=== PATIENT | female | born 1985 | race Caucasian/White ===

== ENCOUNTER 2018-11-09 10:35 | Inpatient (IN) | payer BC ==
[2018-11-09] MEDS ORDERED: Ondansetron 4 MG/2 ML SDV IVPUSH ONE (11:16)
[2018-11-09] MEDS ORDERED: Sodium Chloride 0.9% 10 ML Syringe FLUSH PRN (11:16)
[2018-11-09] MEDS ORDERED: Sodium Chloride 0.9% 1,000 ML IV SCH (11:30)
--- NOTE | 2018-11-09 11:58 | EDM.PDOCBH ---
ED HPI GENERAL MEDICAL PROBLEM - General Chief Complaint: Behavioral/Psych Stated Complaint: SOB Time Seen by Provider: 11/09/18 10:49 Source of Information: Reports: Patient, Family History Limitations: Reports: No Limitations - History of Present Illness INITIAL COMMENTS - FREE TEXT/NARRATIVE: The patient presents with her and daughter for an anxiety attack. She says this started early this morning. She has been dealing with anxiety for years. She has tried xanax and ativan and she does not like how they make her feel. She then turns to alcohol to help with the symptoms. Her alcohol use has been increasing and becoming daily. She can stop for days but she comes right back to it because of the anxiety. She has some shortness of breath with it and chest pain today. She last drank last night. She has no medical problems other then the anxiety. She has lost her mother and father over the past couple of years. This has been a lot to deal with. She has some right ear pain. She has no fever or chills. She does have a slight cough. Onset: Gradual Duration: Week(s): Location: Reports: Chest Quality: Reports: Other (Tightness) Severity: Mild Improves with: Reports: None Worsens with: Reports: None Associated Symptoms: Reports: Chest Pain, Shortness of Breath. 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 , Psychiatric History: Reports: Anxiety - Infectious Disease History Infectious Disease History: Reports: Chicken Pox - Past Surgical History Female Surgical History: Reports: Section Social & Family History - Tobacco Use Smoking Status *Q: Unknown Ever Smoked - Caffeine Use Caffeine Use: Reports: Coffee Other Caffeine Use: 3 cups daily ED ROS GENERAL - Review of Systems Review Of Systems: See Below Constitutional: Reports: No Symptoms HEENT: Reports: Ear Pain Respiratory: Reports: Shortness of Breath Cardiovascular: Reports: Chest Pain Endocrine: Reports: No Symptoms GI/Abdominal: Reports: No Symptoms : Reports: No Symptoms Musculoskeletal: Reports: No Symptoms Skin: Reports: No Symptoms ED EXAM, BEHAVIORAL HEALTH - Physical Exam Exam: See Below Exam Limited By: No Limitations General Appearance: Alert, No Apparent Distress Ears: Normal External Exam Nose: Normal Inspection Head: Atraumatic, Normocephalic Neck: Normal Inspection Respiratory/Chest: No Respiratory Distress, Lungs Clear, Normal Breath Sounds Cardiovascular: Regular Rate, Rhythm, No Edema, No Murmur GI/Abdominal: Soft, Non-Tender, No Organomegaly, No Mass Back Exam: Normal Inspection Extremities: Normal Inspection Neurological: Alert, No Motor/Sensory Deficits, Oriented x 3 COURSE, BEHAVIORAL HEALTH COMP - Course Vital Signs: Last Vital Signs Temp 98.5 F 11/09/18 10:52 Pulse 88 11/09/18 10:52 Resp 16 11/09/18 10:52 BP 115/85 11/09/18 10:52 Pulse Ox 100 11/09/18 10:52 Orders, Labs, Meds: Active Orders 24 hr Category Date Time Status Cardiac Monitoring [RC] . DIRECTED Care 11/09/18 11:17 Active EKG Documentation Completion [RC] ASDIRECTED Care 11/09/18 11:58 Active Peripheral IV Care [RC] . DIRECTED Care 11/09/18 11:18 Active DRUG SCREEN, URINE [URCHEM] Stat Lab 11/09/18 11:16 Ordered Sodium Chloride 0.9% [Normal Saline] 1,000 ml Med 11/09/18 11:30 Active IV .BOLUS Sodium Chloride 0.9% [Saline Flush] Med 11/09/18 11:16 Active 10 ml FLUSH ASDIRECTED PRN ED Antiemetic Medication Reflex [OM.PC] Stat Oth 11/09/18 11:17 Ordered Peripheral IV Insertion Adult [OM.PC] Stat Oth 11/09/18 11:16 Ordered EKG 12 Lead [EK] Stat Ther 11/09/18 11:57 Ordered Medication Orders Sodium Chloride (Normal Saline) 1,000 mls @ 1,000 mls/hr IV .BOLUS LILIA Last Admin: 11/09/18 11:37 Dose: 1,000 mls/hr Sodium Chloride (Saline Flush) 10 ml FLUSH ASDIRECTED PRN PRN Reason: Keep Vein Open Last Admin: 11/09/18 11:37 Dose: 10 ml Laboratory Tests 11/09/18 11/09/18 11/09/18 Range/Units 11:35 11:35 11:35 WBC 7.38 (3.98-10.04) K/mm3 RBC 4.86 (3.98-5.22) M/mm3 Hgb 11.4 (11.2-15.7) gm/L Hct 36.4 (34.1-44.9) % MCV 74.9 L (79.4-94.8) fl MCH 23.5 L (25.6-32.2) pg MCHC 31.3 L (32.2-35.5) g/dl RDW Std Deviation 56.4 H (36.4-46.3) fL Plt Count 403 H (182-369) K/mm3 MPV 9.3 L (9.4-12.3) fl Neut % (Auto) 77.4 H (34.0-71.1) % Lymph % (Auto) 13.4 L (19.3-51.7) % [place] % (Auto) 8.8 (4.7-12.5) % Eos % (Auto) 0 L (0.7-5.8) Baso % (Auto) 0.3 (0.1-1.2) % Neut # (Auto) 5.71 (1.56-6.13) K/mm3 Lymph # (Auto) 0.99 L (1.18-3.74) K/mm3 [place] # (Auto) 0.65 H (0.24-0.36) K/mm3 Eos # (Auto) 0.00 L (0.04-0.36) K/mm3 Baso # (Auto) 0.02 (0.01-0.08) K/mm3 Manual Slide Review Abnormal smear Sodium 139 (136-145) mEq/L Potassium 3.5 (3.5-5.1) mEq/L Chloride 100 (98-107) mEq/L Carbon Dioxide 27 (21-32) mEq/L Anion Gap 15.5 H (5-15) BUN 10 (7-18) mg/dL Creatinine 0.8 (0.55-1.02) mg/dL Est Cr Clr Drug Dosing TNP Estimated GFR (MDRD) > 60 (>60) mL/min BUN/Creatinine Ratio 12.5 L (14-18) Glucose 112 H (74-106) mg/dL Calcium 8.9 (8.5-10.1) mg/dL Total Bilirubin 0.7 (0.2-1.0) mg/dL AST 43 H (15-37) U/L ALT 47 (14-59) U/L Alkaline Phosphatase 95 (46-116) U/L Troponin I (0.00-0.056) ng/mL Total Protein 7.8 (6.4-8.2) g/dl Albumin 4.0 (3.4-5.0) g/dl Globulin 3.8 gm/dL Albumin/Globulin Ratio 1.1 (1-2) HCG, Qual Negative (NEGATIVE) Ethyl Alcohol 0.01 (0.00) gm% 11/09/18 Range/Units 11:35 WBC (3.98-10.04) K/mm3 RBC (3.98-5.22) M/mm3 Hgb (11.2-15.7) gm/L Hct (34.1-44.9) % MCV (79.4-94.8) fl MCH (25.6-32.2) pg MCHC (32.2-35.5) g/dl RDW Std Deviation (36.4-46.3) fL Plt Count (182-369) K/mm3 MPV (9.4-12.3) fl Neut % (Auto) (34.0-71.1) % Lymph % (Auto) (19.3-51.7) % [place] % (Auto) (4.7-12.5) % Eos % (Auto) (0.7-5.8) Baso % (Auto) (0.1-1.2) % Neut # (Auto) (1.56-6.13) K/mm3 Lymph # (Auto) (1.18-3.74) K/mm3 [place] # (Auto) (0.24-0.36) K/mm3 Eos # (Auto) (0.04-0.36) K/mm3 Baso # (Auto) (0.01-0.08) K/mm3 Manual Slide Review Sodium (136-145) mEq/L Potassium (3.5-5.1) mEq/L Chloride (98-107) mEq/L Carbon Dioxide (21-32) mEq/L Anion Gap (5-15) BUN (7-18) mg/dL Creatinine (0.55-1.02) mg/dL Est Cr Clr Drug Dosing Estimated GFR (MDRD) (>60) mL/min BUN/Creatinine Ratio (14-18) Glucose (74-106) mg/dL Calcium (8.5-10.1) mg/dL Total Bilirubin (0.2-1.0) mg/dL AST (15-37) U/L ALT (14-59) U/L Alkaline Phosphatase (46-116) U/L Troponin I < 0.017 (0.00-0.056) ng/mL Total Protein (6.4-8.2) g/dl Albumin (3.4-5.0) g/dl Globulin gm/dL Albumin/Globulin Ratio (1-2) HCG, Qual (NEGATIVE) Ethyl Alcohol (0.00) gm% Medications Generic Name Dose Route Start Last Admin Trade Name Freq PRN Reason Stop Dose Admin Sodium Chloride 1,000 mls @ 1,000 mls/hr 11/09/18 11:30 11/09/18 11:37 Normal Saline IV 1,000 mls/hr .BOLUS LILIA Administration Sodium Chloride 10 ml 11/09/18 11:16 11/09/18 11:37 Saline Flush FLUSH 10 ml ASDIRECTED PRN Administration Keep Vein Open Discontinued Medications Generic Name Dose Route Start Last Admin Trade Name Freq PRN Reason Stop Dose Admin Ondansetron HCl 4 mg 11/09/18 11:16 11/09/18 11:38 Zofran IVPUSH 11/09/18 11:17 4 mg ONETIME ONE Administration Re-Assessment/Re-Exam: I ordered an IV NS 1L bolus, zofran 4g IV, labs, and EKG. Her EKG shows a NSR with no acute changes. Her CBC looks good. Her anion gap was a little elevated at 15.5. Her troponin was negative. Her HCG is negative. Her blood alcohol is 0.01. She was unable to give us a urine sample yet. I feel she needs to be admitted. I called Dr Spring and he agreed. Departure - Departure Time of Disposition: 13:45 Disposition: Admitted As Inpatient 64 Condition: Poor Clinical Impression: Anxiety, Alcohol abuse Alcohol dependence Qualifiers: Substance use status: unspecified alcohol-induced disorder Qualified Code(s): F10.29 - Alcohol dependence with unspecified alcohol-induced disorder Alcohol withdrawal Qualifiers: Complication of substance-induced condition: uncomplicated Qualified Code(s): F10.230 - Alcohol dependence with withdrawal, uncomplicated - Discharge Information Referrals: Yazmin Hendrix [employer] REPAIRER [Primary Care Provider] - Forms: ED Department Discharge - My Orders Last 24 Hours: My Active Orders 11/09/18 11:16 DRUG SCREEN, URINE [URCHEM] Stat Sodium Chloride 0.9% [Saline Flush] 10 ml FLUSH ASDIRECTED PRN Peripheral IV Insertion Adult [OM.PC] Stat 11/09/18 11:17 Cardiac Monitoring [RC] . DIRECTED ED Antiemetic Medication Reflex [OM.PC] Stat 11/09/18 11:18 Peripheral IV Care [RC] . DIRECTED 11/09/18 11:30 Sodium Chloride 0.9% [Normal Saline] 1,000 ml IV .BOLUS 11/09/18 11:57 EKG 12 Lead [EK] Stat 11/09/18 11:58 EKG Documentation Completion [RC] ASDIRECTED - Assessment/Plan Last 24 Hours: My Active Orders 11/09/18 11:16 DRUG SCREEN, URINE [URCHEM] Stat Sodium Chloride 0.9% [Saline Flush] 10 ml FLUSH ASDIRECTED PRN Peripheral IV Insertion Adult [OM.PC] Stat 11/09/18 11:17 Cardiac Monitoring [RC] . DIRECTED ED Antiemetic Medication Reflex [OM.PC] Stat 11/09/18 11:18 Peripheral IV Care [RC] . DIRECTED 11/09/18 11:30 Sodium Chloride 0.9% [Normal Saline] 1,000 ml IV .BOLUS 11/09/18 11:57 EKG 12 Lead [EK] Stat 11/09/18 11:58 EKG Documentation Completion [RC] ASDIRECTED
--- NOTE | 2018-11-09 15:17 | PCM.HP ---
H&P History of Present Illness - General Date of Service: 11/09/18 Admit Problem/Dx: Admission Diagnosis/Problem Admission Diagnosis/Problem Alcohol abuse Source of Information: Patient, Old Records, Provider, RN Notes Reviewed History Limitations: Reports: No Limitations - History of Present Illness Initial Comments - Free Text/Narative: This is a 32 yo white female with no significant past medical hx except for uncontrolled Anxiety, Depression and Panic Attack who comes in for worsening symptoms that started early this morning. She states she has been dealing with anxiety since she was 12 years old. She has been treated with xanax as well as ativan but she does not like how it make her feel like. So she turns to ETOH to control her symptoms. She states she drinks on and off. She can drink 7 days straight and quit for sometime. She usually drinks wine. Her last intake was last night. According to her, she hit rock bottom this past summer and when she gets anxiety attack, she gets stuck at home and not able to leave her house. She also would not answer phone calls. When she gets acute panic attack, her hands will contract, get stiff and then developed bad cramps. She would then hyperventilate followed by crying spell and finally throws up. 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 She also states that she has done well in the past but slowly spiraled down after she lost her mother to cancer a few years ago and her dad this past April due to respiratory failure (Emphysema/COPD). Patient is with 5 children but she has no family support here in town. She is originally from [place] but moved to [place] when her parents retired. She now lives here in [place] with her who usually travels out of town for work. She sees Yazmin Torres as her PCP at the clinic. She has seen her at least twice since she hit [employer] but was never referred to a specialist for further evaluation. She has been on xanax and ativan but when she is on it she "flat line and turns into a zombie like" w/o emotions. She denies being suicidal or homocidal. Currently, she is on Escitalopram for maintenance medication. At first it was working okay but now felt it has stopped working. She denies any other issues other than what she mentioned above. Her initial work up in ED shows a CBC remarkable for MCV of 74.9, MCH of 23.5, MCHC of 31.3 , RDW of 56.4, Platelet # of 403, MPV of 9.3, Neutrophils of 77.4% and Lymphocyte of 13.4%. Her chemistry is significant for AG of 15.5, BS of 112, AST of 43. Her screening is negative. Her UDS in negative. Her JAYASHREE level is 0.01. Patient is being admitted for medical management of severe anxiety with panic attack and acute ETOH abuse and wants some help to get better. 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 , Psychiatric History: Reports: Anxiety - Infectious Disease History Infectious Disease History: Reports: Chicken Pox - Past Surgical History Female Surgical History: Reports: Section Social & Family History - Tobacco Use Smoking Status *Q: Current Every Day Smoker Years of Tobacco use: 1 Packs/Tins Daily: 1 - Caffeine Use Caffeine Use: Reports: Coffee Other Caffeine Use: 3 cups daily - Recreational Drug Use Recreational Drug Use: No H&P Review of Systems - Review of Systems: Review Of Systems: See Below General: Denies: Fever, Chills, Malaise, Weakness, Fatigue HEENT: Reports: No Symptoms Pulmonary: Reports: Shortness of Breath. Denies: Wheezing, Pleuritic Chest Pain , Other Cardiovascular: Reports: Chest Pain, Palpitations. Denies: Dyspnea on Exertion , Lightheadedness, Syncope, Claudication, Blood Pressure Problem Gastrointestinal: Reports: Nausea. Denies: Abdominal Pain, Decreased Appetite, Vomiting Genitourinary: Reports: No Symptoms Musculoskeletal: Reports: Muscle Stiffness. Denies: Neck Pain, Arm Pain, Joint Swelling Skin: Denies: Cyanosis, Jaundice, Pallor, Diaphoresis, Bruising, Rash, Erythema , Wound Psychiatric: Reports: Mood Lability, Anxiety. Denies: Agitation, Cravings, Hallucinations, Suicidal Ideation, Homicidal Ideation Neurological: Denies: Confusion, Seizure, Difficulty Walking, Weakness, Gait Disturbance Hematologic/Lymphatic: Reports: No Symptoms Immunologic: Reports: No Symptoms Exam - Exam Exam: See Below - Vital Signs Vital Signs: Last Vital Signs Temp 36.9 C 11/09/18 10:52 Pulse 88 11/09/18 10:52 Resp 16 11/09/18 10:52 BP 115/85 11/09/18 10:52 Pulse Ox 100 11/09/18 10:52 Weight: 60.419 kg - Exam General: Alert, Oriented, Cooperative HEENT: Conjunctiva Clear, EACs Clear, EOMI, Hearing Intact, Mucosa Moist & Cove , Nares Patent, Normal Nasal Septum, Posterior Pharynx Clear, Pupils Equal, Pupils Reactive Neck: Supple, Trachea Midline Lungs: Clear to Auscultation, Normal Respiratory Effort Cardiovascular: Regular Rate, Regular Rhythm GI/Abdominal Exam: Normal Bowel Sounds, Soft, Non-Tender, No Organomegaly, No Distention, No Abnormal Bruit (Female) Exam: Deferred Rectal (Female) Exam: Deferred Back Exam: Normal Inspection, Full Range of Motion Extremities: Normal Inspection, Normal Range of Motion, Non-Tender, No Pedal Edema, Normal Capillary Refill Peripheral Pulses: 3+: Posterior Tibial (L), Posterior Tibial (R), Dorsalis Pedis (L), Dorsalis Pedis (R) Skin: Warm, Dry, Intact Neuro Extensive - Mental Status: Oriented x3, Normal Cognition, Memory Intact Neuro Extensive - Motor, Sensory, Reflexes: CN II-XII Intact, Normal Gait Psychiatric: Alert, Normal Affect, Normal Mood. No: Anxious, Depressed, Agitated, Homicidal Ideation, Hallucinations, Withdrawal Symptoms - Patient Data Lab Results Last 24 hrs: Laboratory Results - last 24 hr 11/09/18 11/09/18 11/09/18 Range/Units 11:35 11:35 11:35 WBC 7.38 (3.98-10.04) K/mm3 RBC 4.86 (3.98-5.22) M/mm3 Hgb 11.4 (11.2-15.7) gm/L Hct 36.4 (34.1-44.9) % MCV 74.9 L (79.4-94.8) fl MCH 23.5 L (25.6-32.2) pg MCHC 31.3 L (32.2-35.5) g/dl RDW Std Deviation 56.4 H (36.4-46.3) fL Plt Count 403 H (182-369) K/mm3 MPV 9.3 L (9.4-12.3) fl Neut % (Auto) 77.4 H (34.0-71.1) % Lymph % (Auto) 13.4 L (19.3-51.7) % [place] % (Auto) 8.8 (4.7-12.5) % Eos % (Auto) 0 L (0.7-5.8) Baso % (Auto) 0.3 (0.1-1.2) % Neut # (Auto) 5.71 (1.56-6.13) K/mm3 Lymph # (Auto) 0.99 L (1.18-3.74) K/mm3 [place] # (Auto) 0.65 H (0.24-0.36) K/mm3 Eos # (Auto) 0.00 L (0.04-0.36) K/mm3 Baso # (Auto) 0.02 (0.01-0.08) K/mm3 Manual Slide Review Abnormal smear Sodium 139 (136-145) mEq/L Potassium 3.5 (3.5-5.1) mEq/L Chloride 100 (98-107) mEq/L Carbon Dioxide 27 (21-32) mEq/L Anion Gap 15.5 H (5-15) BUN 10 (7-18) mg/dL Creatinine 0.8 (0.55-1.02) mg/dL Est Cr Clr Drug Dosing TNP Estimated GFR (MDRD) > 60 (>60) mL/min BUN/Creatinine Ratio 12.5 L (14-18) Glucose 112 H (74-106) mg/dL Calcium 8.9 (8.5-10.1) mg/dL Total Bilirubin 0.7 (0.2-1.0) mg/dL AST 43 H (15-37) U/L ALT 47 (14-59) U/L Alkaline Phosphatase 95 (46-116) U/L Troponin I (0.00-0.056) ng/mL Total Protein 7.8 (6.4-8.2) g/dl Albumin 4.0 (3.4-5.0) g/dl Globulin 3.8 gm/dL Albumin/Globulin Ratio 1.1 (1-2) HCG, Qual Negative (NEGATIVE) Ethyl Alcohol 0.01 (0.00) gm% 11/09/18 Range/Units 11:35 WBC (3.98-10.04) K/mm3 RBC (3.98-5.22) M/mm3 Hgb (11.2-15.7) gm/L Hct (34.1-44.9) % MCV (79.4-94.8) fl MCH (25.6-32.2) pg MCHC (32.2-35.5) g/dl RDW Std Deviation (36.4-46.3) fL Plt Count (182-369) K/mm3 MPV (9.4-12.3) fl Neut % (Auto) (34.0-71.1) % Lymph % (Auto) (19.3-51.7) % [place] % (Auto) (4.7-12.5) % Eos % (Auto) (0.7-5.8) Baso % (Auto) (0.1-1.2) % Neut # (Auto) (1.56-6.13) K/mm3 Lymph # (Auto) (1.18-3.74) K/mm3 [place] # (Auto) (0.24-0.36) K/mm3 Eos # (Auto) (0.04-0.36) K/mm3 Baso # (Auto) (0.01-0.08) K/mm3 Manual Slide Review Sodium (136-145) mEq/L Potassium (3.5-5.1) mEq/L Chloride (98-107) mEq/L Carbon Dioxide (21-32) mEq/L Anion Gap (5-15) BUN (7-18) mg/dL Creatinine (0.55-1.02) mg/dL Est Cr Clr Drug Dosing Estimated GFR (MDRD) (>60) mL/min BUN/Creatinine Ratio (14-18) Glucose (74-106) mg/dL Calcium (8.5-10.1) mg/dL Total Bilirubin (0.2-1.0) mg/dL AST (15-37) U/L ALT (14-59) U/L Alkaline Phosphatase (46-116) U/L Troponin I < 0.017 (0.00-0.056) ng/mL Total Protein (6.4-8.2) g/dl Albumin (3.4-5.0) g/dl Globulin gm/dL Albumin/Globulin Ratio (1-2) HCG, Qual (NEGATIVE) Ethyl Alcohol (0.00) gm% Result Diagrams: 11/10/18 05:45 11/10/18 05:45 Problem List Initiated/Reviewed/Updated: Yes Orders Last 24hrs: Active Orders 24 hr Category Date Time Status Admission Status [Patient Status] [ADT] Routine ADT 11/09/18 13:59 Active Cardiac Monitoring [RC] . DIRECTED Care 11/09/18 11:17 Active EKG Documentation Completion [RC] ASDIRECTED Care 11/09/18 11:58 Active Peripheral IV Care [RC] . DIRECTED Care 11/09/18 11:18 Active DRUG SCREEN, URINE [URCHEM] Stat Lab 11/09/18 15:08 Ordered Sodium Chloride 0.9% [Normal Saline] 1,000 ml Med 11/09/18 11:30 Active IV .BOLUS Sodium Chloride 0.9% [Saline Flush] Med 11/09/18 11:16 Active 10 ml FLUSH ASDIRECTED PRN ED Antiemetic Medication Reflex [OM.PC] Stat Oth 11/09/18 11:17 Ordered Peripheral IV Insertion Adult [OM.PC] Stat Oth 11/09/18 11:16 Ordered EKG 12 Lead [EK] Stat Ther 11/09/18 11:57 Ordered Medication Orders Sodium Chloride (Normal Saline) 1,000 mls @ 1,000 mls/hr IV .BOLUS LILIA Last Admin: 11/09/18 11:37 Dose: 1,000 mls/hr Sodium Chloride (Saline Flush) 10 ml FLUSH ASDIRECTED PRN PRN Reason: Keep Vein Open Last Admin: 11/09/18 11:37 Dose: 10 ml Assessment/Plan Comment:: Assessment/Plan: Acute: ETOH Abuse - CIWA protocol: CIWA score is low - Ativan/Clonidine/Haldol - Hydralazine and IVP BB for HR/BP control - Ativan for Abortive Seizure and Withdrawal Symptoms Severe Anxiety with Panic Attack - Uncontrolled - Hit rock bottom this past summer - Has had multiple stressors and worsened by recent of her father this past April - She has tried Xanax but it does not make her feel good; she is now Escitalopram but she states no onger works for her - She has been drinking ETOH to control her anxiety Chronic: Anxiety with Panic Attack Depression Plan: Admit to ICU MVI, Folic Acid and Thiamine CIWA protocol Ativan for Abortive Seizure and Withdrawal Symptoms PRN meds for Withdrawal Symptoms Aspiration/Seizure Precautions SW/CM d/c planning SA/Psych consult Code Status: 1
[2018-11-09] MEDS ORDERED: Bisacodyl 5 MG Tab PO PRN (15:20)
[2018-11-09] MEDS ORDERED: Acetaminophen 325 MG Tab PO PRN (15:20)
[2018-11-09] MEDS ORDERED: Nicotine 21 MG/24 Hr Patch TRDERM PRN (15:20)
[2018-11-09] MEDS ORDERED: Ondansetron 4 MG/2 ML SDV IV PRN (15:20)
[2018-11-09] MEDS ORDERED: hydrALAZINE 20 MG/ML SDV IVPUSH PRN (15:20)
[2018-11-09] MEDS ORDERED: Metoprolol Tartrate 5 MG/5 ML SDV IVPUSH PRN (15:20)
[2018-11-09] MEDS ORDERED: Docusate Sodium 100 MG Cap PO PRN (15:20)
[2018-11-09] MEDS ORDERED: Albuterol/Ipratropium 3.0-0.5 MG/3 ML Neb Soln NEB PRN (15:20)
[2018-11-09] MEDS ORDERED: Promethazine 6.25 MG in Sodium Chloride 0.9% 50 ML IV PRN (15:20)
[2018-11-09] MEDS ORDERED: HYDROmorphone 1 MG/ML Syringe IVPUSH PRN (15:20)
[2018-11-09] MEDS ORDERED: Polyethylene Glycol 3350 Powder 17 GM Packet PO PRN (15:20)
[2018-11-09] MEDS ORDERED: Acetaminophen/HYDROcodone 325-5 MG Tab PO PRN (15:20)
[2018-11-09] MEDS ORDERED: LORazepam 2 MG/ML SDV IVPUSH PRN ×2 (15:20→15:27)
[2018-11-09] MEDS ORDERED: Multivitamins,Therapeutic Tab PO ONE (15:25)
[2018-11-09] MEDS ORDERED: cloNIDine 0.1 MG Tab PO PRN (15:25)
[2018-11-09] MEDS ORDERED: Thiamine 100 MG in Sodium Chloride 0.9% 50 ML IV ONE (15:25)
[2018-11-09] MEDS ORDERED: Haloperidol Lactate 5 MG/ML SDV IM PRN (15:25)
[2018-11-09] MEDS ORDERED: Thiamine 100 MG Tab PO ONE (16:46)
[2018-11-09] MEDS: Famotidine 20 MG Tab PO SCH (16:54)
[2018-11-09] MEDS ORDERED: Topiramate 25 MG Tab PO SCH (21:00)
[2018-11-09] MEDS ORDERED: QUEtiapine 25 MG Tab PO SCH (21:00)
[2018-11-10] MEDS: Famotidine 20 MG Tab PO SCH ×2 (04:26→14:34)
[2018-11-10 08:37] VITALS: BP 128/84
[2018-11-10] MEDS ORDERED: Folic Acid 1 MG Tab PO SCH (09:00)
[2018-11-10] MEDS ORDERED: Topiramate 25 MG Tab PO SCH (09:00)
--- NOTE | 2018-11-10 09:12 | PCM.PN ---
- General Info Date of Service: 11/10/18 Admission Dx/Problem (Free Text): Admission Diagnosis/Problem Admission Diagnosis/Problem Alcohol abuse Functional Status: Reports: Pain Controlled, Tolerating Diet, Ambulating, Urinating. Denies: New Symptoms - Patient Data Vitals - Most Recent: Last Vital Signs Temp 36.6 C 11/10/18 08:00 Pulse 72 11/10/18 08:00 Resp 18 11/10/18 08:00 BP 128/84 11/10/18 08:00 Pulse Ox 97 11/10/18 08:00 Weight - Most Recent: 60.872 kg I&O - Last 24 Hours: Intake & Output 11/09/18 11/10/18 11/10/18 22:59 06:59 14:59 Intake Total 580 500 Output Total 500 Balance 80 500 Lab Results Last 24 Hours: Laboratory Results - last 24 hr 11/09/18 11/09/18 11/09/18 Range/Units 11:35 11:35 11:35 WBC 7.38 (3.98-10.04) K/mm3 RBC 4.86 (3.98-5.22) M/mm3 Hgb 11.4 (11.2-15.7) gm/L Hct 36.4 (34.1-44.9) % MCV 74.9 L (79.4-94.8) fl MCH 23.5 L (25.6-32.2) pg MCHC 31.3 L (32.2-35.5) g/dl RDW Std Deviation 56.4 H (36.4-46.3) fL Plt Count 403 H (182-369) K/mm3 MPV 9.3 L (9.4-12.3) fl Neut % (Auto) 77.4 H (34.0-71.1) % Lymph % (Auto) 13.4 L (19.3-51.7) % Bowman % (Auto) 8.8 (4.7-12.5) % Eos % (Auto) 0 L (0.7-5.8) Baso % (Auto) 0.3 (0.1-1.2) % Neut # (Auto) 5.71 (1.56-6.13) K/mm3 Lymph # (Auto) 0.99 L (1.18-3.74) K/mm3 Bowman # (Auto) 0.65 H (0.24-0.36) K/mm3 Eos # (Auto) 0.00 L (0.04-0.36) K/mm3 Baso # (Auto) 0.02 (0.01-0.08) K/mm3 Manual Slide Review Abnormal smear Sodium 139 (136-145) mEq/L Potassium 3.5 (3.5-5.1) mEq/L Chloride 100 (98-107) mEq/L Carbon Dioxide 27 (21-32) mEq/L Anion Gap 15.5 H (5-15) BUN 10 (7-18) mg/dL Creatinine 0.8 (0.55-1.02) mg/dL Est Cr Clr Drug Dosing TNP Estimated GFR (MDRD) > 60 (>60) mL/min BUN/Creatinine Ratio 12.5 L (14-18) Glucose 112 H (74-106) mg/dL Calcium 8.9 (8.5-10.1) mg/dL Magnesium (1.8-2.4) mg/dl Total Bilirubin 0.7 (0.2-1.0) mg/dL AST 43 H (15-37) U/L ALT 47 (14-59) U/L Alkaline Phosphatase 95 (46-116) U/L Troponin I (0.00-0.056) ng/mL Total Protein 7.8 (6.4-8.2) g/dl Albumin 4.0 (3.4-5.0) g/dl Globulin 3.8 gm/dL Albumin/Globulin Ratio 1.1 (1-2) Free T4 (0.76-1.46) ng/dL TSH 3rd Generation (0.358-3.74) uIU/mL HCG, Qual Negative (NEGATIVE) Urine Opiates Screen (GESYXI=012) Ur Buprenorphine Scrn (CUTOFF=10) Ur Oxycodone Screen (PFG7IO=225) Urine Methadone Screen (QULNDJ=677) Ur Propoxyphene Screen (HQLPGJ=523) Ur Barbiturates Screen (XMPSYN=010) Ur Tricyclics Screen (BBXMLA=675) Ur Phencyclidine Scrn (CUTOFF=25) Ur Amphetamine Screen (YGDBSG=208) U Methamphetamines Scrn (MPNRXU=710) U Benzodiazepines Scrn (VMYWHH=144) U Cocaine Metab Screen (RYUJIV=497) U Marijuana (THC) Screen (CUTOFF=50) Ethyl Alcohol 0.01 (0.00) gm% 11/09/18 11/09/18 11/10/18 Range/Units 11:35 14:40 05:45 WBC 4.88 (3.98-10.04) K/mm3 RBC 4.52 (3.98-5.22) M/mm3 Hgb 10.8 L (11.2-15.7) gm/L Hct 34.3 (34.1-44.9) % MCV 75.9 L (79.4-94.8) fl MCH 23.9 L (25.6-32.2) pg MCHC 31.5 L (32.2-35.5) g/dl RDW Std Deviation 56.8 H (36.4-46.3) fL Plt Count 342 (182-369) K/mm3 MPV 10.3 (9.4-12.3) fl Neut % (Auto) 56.6 (34.0-71.1) % Lymph % (Auto) 28.7 (19.3-51.7) % Bowman % (Auto) 13.1 H (4.7-12.5) % Eos % (Auto) 1.4 (0.7-5.8) Baso % (Auto) 0.2 (0.1-1.2) % Neut # (Auto) 2.76 (1.56-6.13) K/mm3 Lymph # (Auto) 1.40 (1.18-3.74) K/mm3 Bowman # (Auto) 0.64 H (0.24-0.36) K/mm3 Eos # (Auto) 0.07 (0.04-0.36) K/mm3 Baso # (Auto) 0.01 (0.01-0.08) K/mm3 Manual Slide Review Sodium (136-145) mEq/L Potassium (3.5-5.1) mEq/L Chloride (98-107) mEq/L Carbon Dioxide (21-32) mEq/L Anion Gap (5-15) BUN (7-18) mg/dL Creatinine (0.55-1.02) mg/dL Est Cr Clr Drug Dosing Estimated GFR (MDRD) (>60) mL/min BUN/Creatinine Ratio (14-18) Glucose (74-106) mg/dL Calcium (8.5-10.1) mg/dL Magnesium (1.8-2.4) mg/dl Total Bilirubin (0.2-1.0) mg/dL AST (15-37) U/L ALT (14-59) U/L Alkaline Phosphatase (46-116) U/L Troponin I < 0.017 (0.00-0.056) ng/mL Total Protein (6.4-8.2) g/dl Albumin (3.4-5.0) g/dl Globulin gm/dL Albumin/Globulin Ratio (1-2) Free T4 (0.76-1.46) ng/dL TSH 3rd Generation (0.358-3.74) uIU/mL HCG, Qual (NEGATIVE) Urine Opiates Screen Negative (AEQNOT=951) Ur Buprenorphine Scrn Negative (CUTOFF=10) Ur Oxycodone Screen Negative (XUJ4VL=693) Urine Methadone Screen Negative (IJZLES=773) Ur Propoxyphene Screen Negative (YSDRTS=882) Ur Barbiturates Screen Negative (KCGIGR=247) Ur Tricyclics Screen Negative (ZDUJXC=910) Ur Phencyclidine Scrn Negative (CUTOFF=25) Ur Amphetamine Screen Negative (IBKEWX=747) U Methamphetamines Scrn Negative (KAPRJP=255) U Benzodiazepines Scrn Negative (NLCRLE=447) U Cocaine Metab Screen Negative (YRCXSD=950) U Marijuana (THC) Screen Negative (CUTOFF=50) Ethyl Alcohol (0.00) gm% 11/10/18 Range/Units 05:45 WBC (3.98-10.04) K/mm3 RBC (3.98-5.22) M/mm3 Hgb (11.2-15.7) gm/L Hct (34.1-44.9) % MCV (79.4-94.8) fl MCH (25.6-32.2) pg MCHC (32.2-35.5) g/dl RDW Std Deviation (36.4-46.3) fL Plt Count (182-369) K/mm3 MPV (9.4-12.3) fl Neut % (Auto) (34.0-71.1) % Lymph % (Auto) (19.3-51.7) % Bowman % (Auto) (4.7-12.5) % Eos % (Auto) (0.7-5.8) Baso % (Auto) (0.1-1.2) % Neut # (Auto) (1.56-6.13) K/mm3 Lymph # (Auto) (1.18-3.74) K/mm3 Bowman # (Auto) (0.24-0.36) K/mm3 Eos # (Auto) (0.04-0.36) K/mm3 Baso # (Auto) (0.01-0.08) K/mm3 Manual Slide Review Sodium 136 (136-145) mEq/L Potassium 3.5 (3.5-5.1) mEq/L Chloride 102 (98-107) mEq/L Carbon Dioxide 25 (21-32) mEq/L Anion Gap 12.5 (5-15) BUN 8 (7-18) mg/dL Creatinine 0.7 (0.55-1.02) mg/dL Est Cr Clr Drug Dosing 89.56 Estimated GFR (MDRD) > 60 (>60) mL/min BUN/Creatinine Ratio 11.4 L (14-18) Glucose 107 H (74-106) mg/dL Calcium 8.6 (8.5-10.1) mg/dL Magnesium 2.0 (1.8-2.4) mg/dl Total Bilirubin (0.2-1.0) mg/dL AST (15-37) U/L ALT (14-59) U/L Alkaline Phosphatase (46-116) U/L Troponin I (0.00-0.056) ng/mL Total Protein (6.4-8.2) g/dl Albumin (3.4-5.0) g/dl Globulin gm/dL Albumin/Globulin Ratio (1-2) Free T4 0.90 (0.76-1.46) ng/dL TSH 3rd Generation 1.158 (0.358-3.74) uIU/mL HCG, Qual (NEGATIVE) Urine Opiates Screen (OEDDFH=701) Ur Buprenorphine Scrn (CUTOFF=10) Ur Oxycodone Screen (ITE4MQ=680) Urine Methadone Screen (TZFBIJ=998) Ur Propoxyphene Screen (JJGHMW=524) Ur Barbiturates Screen (FPALZH=075) Ur Tricyclics Screen (HXQSJD=856) Ur Phencyclidine Scrn (CUTOFF=25) Ur Amphetamine Screen (TNIMPT=244) U Methamphetamines Scrn (BWVHQT=561) U Benzodiazepines Scrn (WSDAPA=033) U Cocaine Metab Screen (EZYUDW=533) U Marijuana (THC) Screen (CUTOFF=50) Ethyl Alcohol (0.00) gm% Med Orders - Current: Current Medications Acetaminophen (Tylenol) 650 mg PO Q4H PRN PRN Reason: Pain (Mild 1-3)/fever Hydrocodone Bitart/Acetaminophen ([place] 325-5 Mg) 1 tab PO Q4H PRN PRN Reason: Pain (moderate 4-6) Albuterol/Ipratropium (Duoneb 3.0-0.5 Mg/3 Ml) 3 ml NEB Q4H PRN PRN Reason: Shortness Of Breath/wheezing Bisacodyl (Dulcolax) 5 mg PO DAILY PRN PRN Reason: Constipation Clonidine HCl (Catapres) 0.1 mg PO Q4H PRN PRN Reason: Agitation Docusate Sodium (Colace) 100 mg PO BID PRN PRN Reason: Constipation Famotidine (Pepcid) 20 mg PO Q12H [facility] Last Admin: 11/10/18 04:26 Dose: 20 mg Folic Acid (Folic Acid) 1 mg PO DAILY [facility] Stop: 11/12/18 09:01 Haloperidol Lactate (Haldol) 2 mg IM Q4H PRN PRN Reason: Agitation Hydralazine HCl (Apresoline) 20 mg IVPUSH Q4H PRN PRN Reason: Hypertension Last Admin: 11/09/18 21:13 Dose: 20 mg Hydromorphone HCl (Dilaudid) 0.25 mg IVPUSH Q2H PRN PRN Reason: Pain (severe 7-10) Sodium Chloride (Normal Saline) 1,000 mls @ 1,000 mls/hr IV .BOLUS [facility] Last Admin: 11/09/18 11:37 Dose: 1,000 mls/hr Promethazine HCl 6.25 mg/ (Sodium Chloride) 50.25 mls @ 100 mls/hr IV Q6H PRN PRN Reason: Nausea/Vomiting Lorazepam (Ativan) 2 mg IVPUSH Q4H PRN PRN Reason: Seizures Lorazepam (Ativan) 0 mg IVPUSH Q4H PRN; Protocol PRN Reason: Withdrawal Symptoms Magnesium Sulfate (Pharmacy To Dose - Magnesium Replacement) 1 dose .XX ASDIRECTED [facility] Metoprolol Tartrate (Lopressor) 5 mg IVPUSH Q4H PRN PRN Reason: Tachycardia Miscellaneous Information (Remove Patch) 0 ea TRDERM Q24H [facility] Nicotine (Habitrol) 21 mg TRDERM Q24H PRN PRN Reason: Nicotine Dependence Ondansetron HCl (Zofran) 4 mg IV Q6H PRN PRN Reason: Nausea/Vomiting Norgestrel-Ethinyl (Estradiol 1 Tab) 0 each PO DAILY [facility] Polyethylene Glycol (Miralax) 17 gm PO DAILY PRN PRN Reason: Constipation Potassium Chloride (Pharmacy To Dose - Potassium Replacement) 1 dose .XX ASDIRECTED [facility] Senna/Docusate Sodium (Senna Plus) 1 tab PO BID PRN PRN Reason: Constipation Sodium Chloride (Saline Flush) 10 ml FLUSH ASDIRECTED PRN PRN Reason: Keep Vein Open Last Admin: 11/09/18 11:37 Dose: 10 ml Topiramate (Topamax) 25 mg PO BID [facility] Discontinued Medications Thiamine HCl 100 mg/ Sodium (Chloride) 51 mls @ 100 mls/hr IV ONETIME ONE Stop: 11/09/18 15:55 Last Admin: 11/09/18 16:46 Dose: Not Given Multivitamins (Thera) 1 each PO ONETIME ONE Stop: 11/09/18 15:26 Last Admin: 11/09/18 16:54 Dose: 1 each Ondansetron HCl (Zofran) 4 mg IVPUSH ONETIME ONE Stop: 11/09/18 11:17 Last Admin: 11/09/18 11:38 Dose: 4 mg Quetiapine Fumarate (Seroquel) 50 mg PO BEDTIME [facility] Thiamine HCl (Vitamin B-1) 100 mg PO ONETIME ONE Stop: 11/09/18 16:47 Last Admin: 11/09/18 16:54 Dose: 100 mg Topiramate (Topamax) 25 mg PO BID [facility] - My Orders Last 24 Hours: My Active Orders 11/09/18 15:20 Height and Weight [RC] 04 Oxygen Therapy [RC] PRN Up ad Shakila [RC] ASDIRECTED VTE/DVT Education [RC] BID Vital Signs [RC] Q4HR Consult to Case Management/Lining [place]utter [CONS] Routine Consult to Physician [CONS] Routine Consult to Spiritual Care [CONS] Routine Acetaminophen [Tylenol] 650 mg PO Q4H PRN Acetaminophen/HYDROcodone [[place] 325-5 MG] 1 tab PO Q4H PRN Albuterol/Ipratropium [DuoNeb 3.0-0.5 MG/3 ML] 3 ml NEB Q4H PRN Bisacodyl [Dulcolax] 5 mg PO DAILY PRN Docusate Sodium [Colace] 100 mg PO BID PRN Docusate Sodium/Sennosides [Senna Plus] 1 tab PO BID PRN HYDROmorphone [Dilaudid] 0.25 mg IVPUSH Q2H PRN LORazepam [Ativan] 2 mg IVPUSH Q4H PRN Metoprolol Tartrate [Lopressor] 5 mg IVPUSH Q4H PRN Nicotine [Habitrol] 21 mg TRDERM Q24H PRN Ondansetron [Zofran] 4 mg IV Q6H PRN Polyethylene Glycol 3350 [MiraLAX] 17 gm PO DAILY PRN Promethazine [Phenergan] 6.25 mg Sodium Chloride 0.9% [Normal Saline] 50 ml IV Q6H hydrALAZINE [Apresoline] 20 mg IVPUSH Q4H PRN Resuscitation Status Routine 11/09/18 15:21 Cardiac Monitoring [RC] . DIRECTED Intake and Output [RC] 04,16 Sequential Compression Device [OM.PC] Per Unit Routine 11/09/18 15:22 Antiembolic Devices [RC] BID RT Aerosol Therapy [RC] ASDIRECTED 11/09/18 15:23 Notify Provider Consults [RC] ASDIRECTED 11/09/18 15:25 CIWAA Assessment [RC] Q4HR Notify Provider [RC] PRN Haloperidol Lactate [Haldol] 2 mg IM Q4H PRN cloNIDine [Catapres] 0.1 mg PO Q4H PRN Seizure Precautions [OM.PC] Routine 11/09/18 15:27 LORazepam [Ativan] See Protocol IVPUSH Q4H PRN 11/09/18 15:30 Famotidine [Pepcid] 20 mg PO Q12H Pharmacy to Dose - Magnesium R [Pharmacy to Dose - Magnesium Replacement] 1 dose .XX ASDIRECTED Pharmacy to Dose - Potassium R [Pharmacy to Dose - Potassium Replacement] 1 dose .XX ASDIRECTED 11/09/18 16:14 Consult for Substance Abuse [CONS] Routine 11/09/18 Lunch Regular Diet [DIET] 11/10/18 06:00 Patient Status [ADT] Routine 11/10/18 09:00 Folic Acid 1 mg PO DAILY Patient's Own Medication [Ptom] 0 each PO DAILY 11/10/18 15:30 Remove Patch 0 ea TRDERM Q24H 11/11/18 05:11 BASIC METABOLIC PANEL,BMP [CHEM] AM MAGNESIUM [CHEM] AM 11/12/18 05:11 BASIC METABOLIC PANEL,BMP [CHEM] AM MAGNESIUM [CHEM] AM - Plan Plan:: Assessment/Plan: Acute: ETOH Abuse - CIWA protocol: CIWA score is low - Ativan/Clonidine/Haldol - Hydralazine and IVP BB for HR/BP control - Ativan for Abortive Seizure and Withdrawal Symptoms Severe Anxiety with Panic Attack - Uncontrolled - Hit rock bottom this past summer - Has had multiple stressors and worsened by recent of her father this past April - She has tried Xanax but it does not make her feel good; she is now Escitalopram but she states no [employer] works for her - She has been drinking ETOH to control her anxiety Chronic: Anxiety with Panic Attack Depression Plan: Admit to ICU MVI, Folic Acid and Thiamine CIWA protocol Ativan for Abortive Seizure and Withdrawal Symptoms PRN meds for Withdrawal Symptoms Aspiration/Seizure Precautions SW/CM d/c planning SA/Psych consult Code Status: 1
--- NOTE | 2018-11-10 15:30 | PCM.DCSUM1 ---
Discharge Summary - Hospital Course HPI Initial Comments: This is a 32 yo white female with no significant past medical hx except for uncontrolled Anxiety, Depression and Panic Attack who comes in for worsening symptoms that started early this morning. She states she has been dealing with anxiety since she was 12 years old. She has been treated with xanax as well as ativan but she does not like how it make her feel like. So she turns to ETOH to control her symptoms. She states she drinks on and off. She can drink 7 days straight and quit for sometime. She usually drinks wine. Her last intake was last night. According to her, she hit rock bottom this past summer and when she gets anxiety attack, she gets stuck at home and not able to leave her house. She also would not answer phone calls. When she gets acute panic attack, her hands will contract, get stiff and then developed bad cramps. She would then hyperventilate followed by crying spell and finally throws up. 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 She also states that she has done well in the past but slowly spiraled down after she lost her mother to cancer a few years ago and her dad this past April due to respiratory failure (Emphysema/COPD). Patient is with 5 children but she has no family support here in [facility]. She is originally from [place] but moved to [place] when her parents retired. She now lives here in [place] with her who usually travels out of [facility] for work. She sees Yazmin Torres as her PCP at the clinic. She has seen her at least twice since she hit [employer] but was never referred to a specialist for further evaluation. She has been on xanax and ativan but when she is on it she "flat line and turns into a zombie like" w/o emotions. She denies being suicidal or homocidal. Currently, she is on Escitalopram for maintenance medication. At first it was working okay but now felt it has stopped working. She denies any other issues other than what she mentioned above. Her initial work up in ED shows a CBC remarkable for MCV of 74.9, MCH of 23.5, MCHC of 31.3 , RDW of 56.4, Platelet # of 403, MPV of 9.3, Neutrophils of 77.4% and Lymphocyte of 13.4%. Her chemistry is significant for AG of 15.5, BS of 112, AST of 43. Her screening is negative. Her UDS in negative. Her JAYASHREE level is 0.01. Patient is being admitted for medical management of severe anxiety with panic attack and acute ETOH abuse and wants some help to get better. Diagnosis: Stroke: No Modified Jessamine Scale: No Symptoms at All Modified Jadyn Scale Score: 0 - Discharge Data Discharge Date: 11/10/18 Discharge Disposition: Home, Self-Care 01 Condition: Good - Discharge Diagnosis/Problem(s) (1) Panic attack due to exceptional stress SNOMED Code(s): 36842517 ICD Code: F41.0 - PANIC DISORDER [EPISODIC PAROXYSMAL ANXIETY]; F43.0 - ACUTE STRESS REACTION Status: Acute (2) Alcohol abuse SNOMED Code(s): 80471796 ICD Code: F10.10 - ALCOHOL ABUSE, UNCOMPLICATED Status: Resolved (3) Anxiety SNOMED Code(s): 92152911 ICD Code: F41.9 - ANXIETY DISORDER, UNSPECIFIED Status: Chronic - Patient Summary/Data Operative Procedure(s) Performed: None Complications: None Consults: Consultations 11/09/18 15:20 Consult to Case Management/Hansard Reporter [CONS] Routine Consult to Physician [CONS] Routine Consult to Spiritual Care [CONS] Routine 11/09/18 16:14 Consult for Substance Abuse [CONS] Routine Labs Pending at D/C: None Recommended Follow-up Testing/Procedures: None Planned Operative Procedure(s) after DC: None - Patient Instructions Diet: Usual Diet as Tolerated Activity: As Tolerated Driving: Do Not Drive Showering/Bathing: May Shower Notify Provider of: Fever, Increased Pain, Nausea and/or Vomiting Other/Special Instructions: - Please take all new medications as directed. - Resume all home medications and routine home activities as tolerated. - Recommend keeping your apointmwnt with Dr. Levy in 4-6 weeks. - Call or follow up with your PCP for any questions or concerns after discharge. - Follow up with your PCP in 1 week was needed. - If you experience mental health crisis, call 911 or come to emergency department and seek medical care. - Come back or seek immediate care should your symptoms persist or get worse - Discharge Plan *PRESCRIPTION DRUG MONITORING PROGRAM REVIEWED*: Not Applicable *COPY OF PRESCRIPTION DRUG MONITORING REPORT IN PATIENT OFELIA: Not Applicable Prescriptions/Med Rec: ClomiPRAMINE [ClomiPRAMINE HCl] 25 mg PO DAILY #90 cap Topiramate [Topamax] 25 mg PO BID #60 tab Home Medications: Home Meds Norgestrel-Ethinyl Estradiol [Elinest-28 Tablet] 1 tab PO DAILY 11/09/18 [ History] ClomiPRAMINE [ClomiPRAMINE HCl] 25 mg PO DAILY #90 cap 11/10/18 [Rx] Topiramate [Topamax] 25 mg PO BID #60 tab 11/10/18 [Rx] Patient Handouts: Alcohol Use Disorder, Panic Attack, [id number], Alcohol Abuse and Nutrition, Steps to Quit Smoking Referrals: Norman Levy MD [Physician] - (Please call office in 4 weeks to set up an appointment for 5-6 weeks from now for [facility]. ) Yazmin Hendrix NP [Primary Care Provider] - - Discharge Summary/Plan Comment DC Time >30 min.: No Discharge Summary/Plan Comment: Discharge to Home - General Info Date of Service: 11/10/18 Admission Dx/Problem (Free Text: Admission Diagnosis/Problem Admission Diagnosis/Problem Alcohol abuse Subjective Update: Follow Up Functional Status: Reports: Pain Controlled, Tolerating Diet, Ambulating, Urinating, New Symptoms - Review of Systems General: Denies: Fever, Weakness, Fatigue, Malaise, Chills HEENT: Reports: No Symptoms Pulmonary: Denies: Shortness of Breath Cardiovascular: Denies: Chest Pain, Palpitations, Dyspnea on Exertion, Lightheadedness Gastrointestinal: Denies: Abdominal Pain, Decreased Appetite, Difficulty Swallowing, Nausea, Vomiting Genitourinary: Reports: No Symptoms Musculoskeletal: Reports: No Symptoms Skin: Denies: Cyanosis, Mottled, Pallor, Diaphoresis, Bruising, Rash Neurological: Denies: Confusion, Dizziness, Headache, Numbness, Paresthesia, Seizure, Tingling, Trouble Speaking, Difficulty Walking, Weakness, Change in Speech, Gait Disturbance Psychiatric: Reports: Anxiety (a little bit). Denies: Confusion, Depression, Mood Lability, Agitation, Cravings, Hallucinations, Suicidal Ideation Systems Review Comment: No significant overnight or acute issues. She is clinically and hemodynamically stable. - Patient Data Vitals - Most Recent: Last Vital Signs Temp 36.6 C 11/10/18 08:00 Pulse 72 03/15/19 08:00 Resp 18 11/10/18 08:00 BP 128/84 11/10/18 08:00 Pulse Ox 97 11/10/18 08:00 Weight - Most Recent: 60.872 kg I&O - Last 24 hours: Intake & Output 11/10/18 11/10/18 11/10/18 06:59 14:59 22:59 Intake Total 500 340 Balance 500 340 Lab Results - Last 24 hrs: Laboratory Results - last 24 hr 11/09/18 11/10/18 11/10/18 Range/Units 14:40 05:45 05:45 WBC 4.88 (3.98-10.04) K/mm3 RBC 4.52 (3.98-5.22) M/mm3 Hgb 10.8 L (11.2-15.7) gm/L Hct 34.3 (34.1-44.9) % MCV 75.9 L (79.4-94.8) fl MCH 23.9 L (25.6-32.2) pg MCHC 31.5 L (32.2-35.5) g/dl RDW Std Deviation 56.8 H (36.4-46.3) fL Plt Count 342 (182-369) K/mm3 MPV 10.3 (9.4-12.3) fl Neut % (Auto) 56.6 (34.0-71.1) % Lymph % (Auto) 28.7 (19.3-51.7) % [place] % (Auto) 13.1 H (4.7-12.5) % Eos % (Auto) 1.4 (0.7-5.8) Baso % (Auto) 0.2 (0.1-1.2) % Neut # (Auto) 2.76 (1.56-6.13) K/mm3 Lymph # (Auto) 1.40 (1.18-3.74) K/mm3 [place] # (Auto) 0.64 H (0.24-0.36) K/mm3 Eos # (Auto) 0.07 (0.04-0.36) K/mm3 Baso # (Auto) 0.01 (0.01-0.08) K/mm3 Sodium 136 (136-145) mEq/L Potassium 3.5 (3.5-5.1) mEq/L Chloride 102 (98-107) mEq/L Carbon Dioxide 25 (21-32) mEq/L Anion Gap 12.5 (5-15) BUN 8 (7-18) mg/dL Creatinine 0.7 (0.55-1.02) mg/dL Est Cr Clr Drug Dosing 89.56 mL/min Estimated GFR (MDRD) > 60 (>60) mL/min BUN/Creatinine Ratio 11.4 L (14-18) Glucose 107 H (74-106) mg/dL Calcium 8.6 (8.5-10.1) mg/dL Magnesium 2.0 (1.8-2.4) mg/dl Free T4 0.90 (0.76-1.46) ng/dL TSH 3rd Generation 1.158 (0.358-3.74) uIU/mL Urine Opiates Screen Negative (DBYXWP=401) Ur Buprenorphine Scrn Negative (CUTOFF=10) Ur Oxycodone Screen Negative (UBL2DI=728) Urine Methadone Screen Negative (GCWITP=451) Ur Propoxyphene Screen Negative (EMRMHG=790) Ur Barbiturates Screen Negative (RWUEEA=605) Ur Tricyclics Screen Negative (BFPZBA=592) Ur Phencyclidine Scrn Negative (CUTOFF=25) Ur Amphetamine Screen Negative (RERQWF=729) U Methamphetamines Scrn Negative (IXNWEC=690) U Benzodiazepines Scrn Negative (KGNSVM=211) U Cocaine Metab Screen Negative (RDJRUN=492) U Marijuana (THC) Screen Negative (CUTOFF=50) Med Orders - Current: Current Medications Acetaminophen (Tylenol) 650 mg PO Q4H PRN PRN Reason: Pain (Mild 1-3)/fever Hydrocodone Bitart/Acetaminophen ([place] 325-5 Mg) 1 tab PO Q4H PRN PRN Reason: Pain (moderate 4-6) Albuterol/Ipratropium (Duoneb 3.0-0.5 Mg/3 Ml) 3 ml NEB Q4H PRN PRN Reason: Shortness Of Breath/wheezing Bisacodyl (Dulcolax) 5 mg PO DAILY PRN PRN Reason: Constipation Clonidine HCl (Catapres) 0.1 mg PO Q4H PRN PRN Reason: Agitation Docusate Sodium (Colace) 100 mg PO BID PRN PRN Reason: Constipation Famotidine (Pepcid) 20 mg PO Q12H [facility] Last Admin: 11/10/18 14:34 Dose: 20 mg Folic Acid (Folic Acid) 1 mg PO DAILY [facility] Stop: 11/12/18 09:01 Last Admin: 11/10/18 09:28 Dose: 1 mg Haloperidol Lactate (Haldol) 2 mg IM Q4H PRN PRN Reason: Agitation Hydralazine HCl (Apresoline) 20 mg IVPUSH Q4H PRN PRN Reason: Hypertension Last Admin: 11/09/18 21:13 Dose: 20 mg Hydromorphone HCl (Dilaudid) 0.25 mg IVPUSH Q2H PRN PRN Reason: Pain (severe 7-10) Sodium Chloride (Normal Saline) 1,000 mls @ 1,000 mls/hr IV .BOLUS [facility] Last Admin: 11/09/18 11:37 Dose: 1,000 mls/hr Promethazine HCl 6.25 mg/ (Sodium Chloride) 50.25 mls @ 100 mls/hr IV Q6H PRN PRN Reason: Nausea/Vomiting Lorazepam (Ativan) 2 mg IVPUSH Q4H PRN PRN Reason: Seizures Lorazepam (Ativan) 0 mg IVPUSH Q4H PRN; Protocol PRN Reason: Withdrawal Symptoms Magnesium Sulfate (Pharmacy To Dose - Magnesium Replacement) 1 dose .XX ASDIRECTED [facility] Metoprolol Tartrate (Lopressor) 5 mg IVPUSH Q4H PRN PRN Reason: Tachycardia Miscellaneous Information (Remove Patch) 0 ea TRDERM Q24H [facility] Last Admin: 11/10/18 14:35 Dose: Not Given Nicotine (Habitrol) 21 mg TRDERM Q24H PRN PRN Reason: Nicotine Dependence Ondansetron HCl (Zofran) 4 mg IV Q6H PRN PRN Reason: Nausea/Vomiting Norgestrel-Ethinyl (Estradiol 1 Tab) 0 each PO DAILY [facility] Last Admin: 11/10/18 09:29 Dose: Not Given Polyethylene Glycol (Miralax) 17 gm PO DAILY PRN PRN Reason: Constipation Potassium Chloride (Pharmacy To Dose - Potassium Replacement) 1 dose .XX ASDIRECTED [facility] Senna/Docusate Sodium (Senna Plus) 1 tab PO BID PRN PRN Reason: Constipation Sodium Chloride (Saline Flush) 10 ml FLUSH ASDIRECTED PRN PRN Reason: Keep Vein Open Last Admin: 11/09/18 11:37 Dose: 10 ml Topiramate (Topamax) 25 mg PO BID [facility] Last Admin: 11/10/18 09:28 Dose: 25 mg Discontinued Medications Thiamine HCl 100 mg/ Sodium (Chloride) 51 mls @ 100 mls/hr IV ONETIME ONE Stop: 11/09/18 15:55 Last Admin: 11/09/18 16:46 Dose: Not Given Multivitamins (Thera) 1 each PO ONETIME ONE Stop: 11/09/18 15:26 Last Admin: 11/09/18 16:54 Dose: 1 each Ondansetron HCl (Zofran) 4 mg IVPUSH ONETIME ONE Stop: 11/09/18 11:17 Last Admin: 11/09/18 11:38 Dose: 4 mg Quetiapine Fumarate (Seroquel) 50 mg PO BEDTIME LILIA Thiamine HCl (Vitamin B-1) 100 mg PO ONETIME ONE Stop: 11/09/18 16:47 Last Admin: 11/09/18 16:54 Dose: 100 mg Topiramate (Topamax) 25 mg PO BID LILIA - Exam General: Reports: Alert, Oriented, Cooperative, No Acute Distress HEENT: Reports: Pupils Equal, Pupils Reactive, EOMI, Mucous Membr. Moist/[place] Neck: Reports: Supple Lungs: Reports: Clear to Auscultation, Normal Respiratory Effort Cardiovascular: Reports: Regular Rate, Regular Rhythm GI/Abdominal Exam: Normal Bowel Sounds, Soft, Non-Tender, No Organomegaly, No Distention, No Abnormal Bruit (Female) Exam: Deferred Rectal (Female) Exam: Deferred Back Exam: Reports: Normal Inspection, Decreased Range of Motion Extremities: Normal Inspection, Normal Range of Motion, Non-Tender, No Pedal Edema, Normal Capillary Refill Skin: Reports: Warm, Dry, Intact Neurological: Reports: No New Focal Deficit Psy/Mental Status: Reports: Alert, Normal Affect, Normal Mood
--- NOTE | 2018-11-10 15:30 | PCM.SN ---
- Free Text/Narrative Note: Patient seen and examined at beside. No significant issue overnight. She has seen by Dr. Levy and was prescribed Clomipramine and Topamax to take. She however refused SA consult. She is clinically stable this morning and has no new complaints. Her morning labs and vitals are stable. Our plan is to discharge her once AA rep is done evaluating her sometime later today.
--- NOTE | 2018-11-11 10:46 | CONS ---
CONSULTING PHYSICIAN: Norman Levy MD DATE OF CONSULTATION: 11/10/2018 Site where the services are provided are [facility] in [place], [place]. Site where the services are provided from office is in [place], [place]. Length of time for this 60-minute inpatient telemedicine event is 60 minutes. IDENTIFICATION: The patient is a 32-year-old female who is admitted to the [facility] MICU. She is seen for psychiatric consultation per the request of staff attending, Dr. Spring, and his treatment team. CHIEF COMPLAINT: "I woke up at like 4 in the morning and I was having a panic attack and I could get rid of it." HISTORY OF PRESENT ILLNESS: The patient is a 32-year-old female who reports that she has been struggling with severe anxiety. She states that both of her parents recently. She has been pretty stressed by these developments, and she states that while she has been taking Lexapro and just was recently prescribed Xanax, these medications have not been helping. Unfortunately, the patient has been engaging in what appears to be a binge drinking pattern per her report, where she will drink heavily for about a week at a time and then stop and then go for a few weeks and then do this again. She states that the only reason she is drinking is because "that is the only thing that helps with my anxiety." She states that she has panic attacks and she states "I feel depressed because I get anxious" and panicky, but if she can get the anxiety and panic attacks under control, she would not feel so depressed. She states "I don't want to have panic attacks anymore." She also states that complicating her clinical picture is the fact that "I definitely have OCD too." She states that she has a pretty big fear of germs and unless everything is clean around herself for her to relax or even get some sleep. She states that even though the alcohol does help with her anxiety and panic, she wants to get her medications readjusted and manage the anxiety without the alcohol noting "I don't want to drink anymore because I get anxious." The patient is reporting racing thoughts and ruminations to the point of distraction. She denies that she is suicidal or homicidal. She denies any psychotic, delusional, or paranoid symptoms. She denies any mood swings. She denies any illicit substance use complicating the clinical picture. MEDICATIONS AT ADMISSION: 1. Lexapro 20 mg daily. The patient has been on this medication for 6 months. 2. Xanax 0.25 mg daily and the patient is noting "I just started this medication before I came in.". ALLERGIES: No known drug allergies. PAST MEDICAL HISTORY: The patient denies. REVIEW OF SYSTEMS: Negative for any acute difficulties or complications currently with her GI, , pulmonary, cardiac, endocrine, blood, immune skin, musculoskeletal, or neurologic systems. FAMILY PSYCHIATRIC HISTORY: The patient reports mother had a history of alcoholism and OCD, and there was a history of mental illness on her maternal side of the family. PAST PSYCHIATRIC AND CD HISTORY: The patient denies any previous psychiatric hospitalizations or chemical dependency treatments. Denies any previous suicide attempts, self-injurious behaviors, eating disorder histories, or abuse issues. PAST PSYCHIATRIC MEDICATION HISTORY: Includes Prozac, which made the patient numb; Paxil; Seroquel; and Zoloft. The patient sees Yazmin Hendrix, who is a local nurse practitioner on the outpatient side. SOCIAL HISTORY: The patient was born in the [facility]. Raised essentially in [place], [place]. She is the second of 3 siblings having 1 older sister and 1 younger brother. The patient's parents were throughout her childhood and adolescence. Father was a business midwife and birth center owner, owned companies and sold the companies and that is when the family moved from [facility] out to [place]. Mother was a homemaker. The patient's highest level of education is a BA in business. 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 She has been twice. First marriage was for 5 years. She has 2 children from this marriage. She was for a couple years and then has had a 2nd marriage now for 9 years. She has 1 biological child from this 2nd marriage. She does have a history of ectopic pregnancies at 20 years of age and then around 28 years of age, but she states that she has moved past these events. Her works as a thermoscrew operator out in the [employer]. The patient lives in [place], [place], with her family. Denies any prior service or legal difficulties. She was raised [place] and considers herself Worship in terms of her dimas formation. She enjoys physical fitness activities and spending time with her children. MENTAL STATUS EXAM: The patient is a 32-year-old white female in no apparent distress. Speech is of regular rate and rhythm. The patient is cognitively oriented. Psychomotor activity is within normal limits. There are no abnormal motor movements or tics observed. Gait and station are not observed. This patient is seated on the side of the bed for the purposes of the inpatient consult. Mood is anxious. Affect is consistent with stated mood, but cooperative overall for the purposes of the telemedicine consult. There is no behavioral or stated evidence of acute suicidal or homicidal ideation or acute psychotic, delusional, or paranoid symptoms. Thought processes are organized. Thought process is significant for racing thoughts and ruminations. There are no manic symptoms or loose associations evident. Judgment and insight appear unimpaired at this point in time. Motivation for help is good. VITAL SIGNS: 149/99, 80, 20, and 98 degrees. IMPRESSION: Calpine I: 1. Obsessive-compulsive disorder, F42. 2. Panic disorder without agoraphobia symptoms, F41. 3. Depression, not otherwise specified, F32.9. 4. Alcohol abuse versus dependence. Calpine II: None. Calpine III: No known active problems. Calpine IV: Severe. Calpine V: 55 to 60. PLAN: 1. Sobriety. 2. Discontinue Lexapro. 3. Discontinue Xanax. 4. Begin trial of Anafranil 50 mg at bedtime x7 days, increasing to 75 mg at bedtime thereafter to help with symptoms of depression and obsessive- compulsive disorder. 5. Begin Topamax 25 mg b.i.d. for anxiety reduction and mood stability. 6. Folic acid supplementation while the patient remains on unit. 7. Thiamine supplementation while the patient remains on unit. 8. ELSIE supplementation 750 mg b.i.d. for anxiety reduction, but this is per the patient's discretion as this involves an [id number] cost. 9. AA rep to visit the patient while on unit. 10.Pastoral guidance while the patient remains on unit. 11.We will continue to follow up with the patient on an as-needed basis while she remains on the inpatient MICU. 12.We will follow up with the patient sooner if any complications in the interim. 13.Recommend the patient follow up with Outpatient Psychiatry when she is medically stabilized and discharged back to the community. 14.Crisis plan is in place. UMBERTO /[id number]
== END 2018-11-10 15:53 | disposition home or self-care (01) | DRG 756 ==
LOC: JD.ED 10:35 → EEVIPCON 10:35 → SUPCPDRO 10:35 → JD.ICU 13:59
PROVIDERS: ADMIT Internal Medicine; ATTEND Internal Medicine
DX: F41.0 Panic disorder [episodic paroxysmal anxiety] (principal); F10.10 Alcohol abuse, uncomplicated; F32.9 Major depressive disorder, single episode, unspecified; F43.0 Acute stress reaction; F17.210 Nicotine dependence, cigarettes, uncomplicated; F42.9 Obsessive-compulsive disorder, unspecified; Z79.899 Other long term (current) drug therapy; Z98.891 History of uterine scar from previous surgery
CPT/HCPCS: 36415; 80048; 80053; 80306; 83735; 84439; 84443; 84484; 84703; 85025; 93005; 96361; 96374; 99285; 99285-25; A9270-GY; G0480; J0360; J2405; J7040

== ENCOUNTER 2018-12-23 20:58 | Emergency (ER) | payer BC ==
[2018-12-23] MEDS ORDERED: Sodium Chloride 0.9% 1,000 ML IV ONE (21:03)
[2018-12-23] MEDS ORDERED: Sodium Chloride 0.9% 10 ML Syringe FLUSH PRN (21:03)
[2018-12-23] MEDS ORDERED: Folic Acid 1 MG Tab PO ONE (21:03)
[2018-12-23] MEDS ORDERED: Thiamine 200 MG/2 ML MDV IVPUSH ONE (21:03)
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
[2018-12-23 21:12] VITALS: BP 144/85
[2018-12-24 04:57] LABS: ACETAMINOPHEN 0 ug/mL (10-30)
== END 2018-12-24 00:02 ==
LOC: JD.ED 20:58 → EEVIPCON 20:58 → JD.ED 12-24 00:02
DX: F10.29 Alcohol dependence with unspecified alcohol-induced disorder (principal); F10.220 Alcohol dependence with intoxication, uncomplicated; Z79.899 Other long term (current) drug therapy
CPT/HCPCS: 36415; 80053; 80306; 81001; 81025; 84443; 85007; 85027; 96361; 96374; 99284; A9270; G0480; J3411; J7040; 99283

== ENCOUNTER 2021-09-06 07:34 | Emergency (ER) | payer BC, MEDICAID ==
[2021-09-06 07:51] VITALS: BP 157/96; PULSE 22
[2021-09-06] MEDS ORDERED: Sodium Chloride 0.9% 10 ML Syringe FLUSH PRN (08:00)
[2021-09-06] MEDS ORDERED: Ondansetron 4 MG/2 ML SDV IVPUSH ONE (08:00)
[2021-09-06] MEDS ORDERED: Sodium Chloride 0.9% 1,000 ML IV STA (08:00)
[2021-09-06] MEDS ORDERED: LORazepam 2 MG/ML SDV IVPUSH ONE (08:01)
--- NOTE | 2021-09-06 08:07 | EDM.PDOC ---
<Richelle Rocha - Last Filed: 09/06/21 08:57> ED HPI GENERAL MEDICAL PROBLEM - General Chief Complaint: Respiratory Problem Stated Complaint: SHORTNESS OF BREATH Time Seen by Provider: 09/06/21 07:51 Source of Information: Reports: Patient History Limitations: Reports: No Limitations - History of Present Illness INITIAL COMMENTS - FREE TEXT/NARRATIVE: Ms. Soila Young is a 35-year-old female who presents with vomiting that began last night. She reports an exposure to COVID on Tuesday and reports "panicking myself". Her last meal was on Tuesday. She reports no new foods. She is also concerned because this morning she reports being unable to get her hands to unclench and can't feel the left side of her face. She has tried to drink water, but reports vomiting that up. She denies any current headache, cough, fever, chills, chest pain. 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 Constitutional: Reports: No Symptoms HEENT: Reports: No Symptoms Respiratory: Reports: No Symptoms Cardiovascular: Reports: No Symptoms Endocrine: Reports: No Symptoms GI/Abdominal: Reports: Nausea, Vomiting. Denies: Abdominal Pain, Black Stool, Constipation, Diarrhea : Reports: No Symptoms Musculoskeletal: Reports: No Symptoms Skin: Reports: No Symptoms Neurological: Reports: Numbness (left side of face) Psychiatric: Reports: Anxiety Hematologic/Lymphatic: Reports: No Symptoms Immunologic: Reports: No Symptoms ED EXAM, GENERAL - Physical Exam Exam: See Below Exam Limited By: No Limitations General Appearance: Alert, Other (Actively vomiting clear fluid. Temp 96.7, RR 22, BP 157/96, SpO2 100% on room air. ) Eye Exam: Bilateral Eye: EOMI, PERRL Ears: Hearing Grossly Normal Nose: Normal Inspection, Normal Mucosa, No Blood Throat/Mouth: Normal Inspection Head: Atraumatic, Normocephalic Neck: Normal Inspection, Supple, Non-Tender Respiratory/Chest: Lungs Clear, Normal Breath Sounds Cardiovascular: Regular Rate, Rhythm, No Edema, No JVD GI/Abdominal: Normal Bowel Sounds, Soft Back Exam: Normal Inspection Extremities: Normal Inspection, Other (Hands relax when patient is distracted) Neurological: Alert, Oriented, No Motor/Sensory Deficits Psychiatric: Anxious Skin Exam: Warm, Dry, Intact, Normal Color, No Rash Lymphatic: No Adenopathy Course - Re-Assessments/Exams Free Text/Narrative Re-Assessment/Exam: 09/06/21 08:21 Initial orders include CBC, CMP, Lipase, HCG, Mg, UA, COVID/Influenza swab, IV insertion, 0.9% NaCl bolus, Img Ativan, 4mg Zofran. 09/06/21 08:57 Influenza A & B, and COVID results negative. Urine: pH 8.5, Protein 2+, Ketones 1+, Occult blood 2+, leukocyte esterase trace. Departure - Departure Disposition: Home, Self-Care 01 Clinical Impression: Gastroenteritis - Discharge Information Prescriptions: Ondansetron [Zofran ODT] 4 mg PO Q6H PRN #20 tab.dis PRN Reason: Nausea\\vomiting Referrals: PCP,None [Primary Care Provider] - Forms: ED Department Discharge Additional Instructions: Drink plenty of fluids. Take the zofran every 6 hours as need for nausea and v omiting. Take tylenol or motrin for any pain. Please return if you are worse. Sepsis Event Note (ED) - Evaluation Sepsis Screening Result: No Definite Risk <Norman Esqueda - Last Filed: 09/06/21 09:47> Course - Vital Signs Last Recorded V/S: Last Vital Signs Temp 96.7 F L 09/06/21 07:46 Pulse 22 L 09/06/21 07:46 Resp 22 H 09/06/21 07:46 BP 157/96 H 09/06/21 07:46 Pulse Ox 100 09/06/21 07:46 - Orders/Labs/Meds Orders: Active Orders 24 hr Category Date Time Status Peripheral IV Care [RC] . DIRECTED Care 09/06/21 08:00 Active CULTURE URINE [MREF] Stat Lab 09/06/21 09:40 Ordered Sodium Chloride 0.9% [Saline Flush] Med 09/06/21 08:00 Active 10 ml FLUSH ASDIRECTED PRN ED Antiemetic Medication Reflex [OM.PC] Stat Oth 09/06/21 08:00 Ordered Peripheral IV Insertion Adult [OM.PC] Stat Oth 09/06/21 08:00 Ordered Medication Orders Sodium Chloride (Sodium Chloride 0.9% 10 Ml Syringe) 10 ml FLUSH ASDIRECTED PRN PRN Reason: Keep Vein Open Last Admin: 09/06/21 08:31 Dose: 10 ml Documented by: HERMMIC Labs: Laboratory Tests 09/06/21 09/06/21 09/06/21 Range/Units 07:56 08:30 08:30 WBC 8.16 (3.98-10.04) K/mm3 RBC 5.09 (3.98-5.22) M/mm3 Hgb 13.0 D (11.2-15.7) gm/dl Hct 39.7 (34.1-44.9) % MCV 78.0 L (79.4-94.8) fl MCH 25.5 L (25.6-32.2) pg MCHC 32.7 (32.2-35.5) g/dl RDW Std Deviation 49.4 H (36.4-46.3) fL Plt Count 439 H D (182-369) K/mm3 MPV 9.7 (9.4-12.3) fl Neut % (Auto) 77.4 H (34.0-71.1) % Lymph % (Auto) 15.8 L (19.3-51.7) % [place] % (Auto) 6.5 (4.7-12.5) % Eos % (Auto) 0 L (0.7-5.8) Baso % (Auto) 0.2 (0.1-1.2) % Neut # (Auto) 6.31 H (1.56-6.13) K/mm3 Lymph # (Auto) 1.29 (1.18-3.74) K/mm3 [place] # (Auto) 0.53 H (0.24-0.36) K/mm3 Eos # (Auto) 0.00 L (0.04-0.36) K/mm3 Baso # (Auto) 0.02 (0.01-0.08) K/mm3 Sodium (136-145) mEq/L Potassium (3.5-5.1) mEq/L Chloride (98-107) mEq/L Carbon Dioxide (21-32) mEq/L Anion Gap (5-15) BUN (7-18) mg/dL Creatinine (0.55-1.02) mg/dL Est Cr Clr Drug Dosing mL/min Estimated GFR (MDRD) (>60) mL/min BUN/Creatinine Ratio (14-18) Glucose (70-99) mg/dL Calcium (8.5-10.1) mg/dL Magnesium (1.8-2.4) mg/dL Total Bilirubin (0.2-1.0) mg/dL AST (15-37) U/L ALT (14-59) U/L Alkaline Phosphatase (46-116) U/L Total Protein (6.4-8.2) g/dl Albumin (3.4-5.0) g/dl Globulin gm/dL Albumin/Globulin Ratio (1-2) Lipase (73-393) U/L HCG, Qual (NEGATIVE) Urine Color Yellow (Yellow) Urine Appearance Clear (Clear) Urine pH 8.5 H (5.0-8.0) Ur Specific [place] 1.020 (1.005-1.030) Urine Protein 2+ H (Negative) Urine Glucose (UA) Negative (Negative) Urine Ketones 1+ H (Negative) Urine Occult Blood 2+ H (Negative) Urine Nitrite Negative (Negative) Urine Bilirubin Negative (Negative) Urine Urobilinogen 0.2 (0.2-1.0) Ur Leukocyte Esterase Trace H (Negative) Urine RBC 10-20 H (0-5) /hpf Urine WBC 5-10 H (0-5) /hpf Ur Squamous Epith Cells 5-10 H (0-5) /hpf Urine Bacteria Moderate H (FEW) /hpf Urine Mucus Few (FEW) /hpf Influenza Type A RNA Negative (NEGATIVE) Influenza Type B RNA Negative (NEGATIVE) SARS-CoV-2 RNA ([place]) Negative (NEGATIVE) 09/06/21 09/06/21 Range/Units 08:30 08:30 WBC (3.98-10.04) K/mm3 RBC (3.98-5.22) M/mm3 Hgb (11.2-15.7) gm/dl Hct (34.1-44.9) % MCV (79.4-94.8) fl MCH (25.6-32.2) pg MCHC (32.2-35.5) g/dl RDW Std Deviation (36.4-46.3) fL Plt Count (182-369) K/mm3 MPV (9.4-12.3) fl Neut % (Auto) (34.0-71.1) % Lymph % (Auto) (19.3-51.7) % [place] % (Auto) (4.7-12.5) % Eos % (Auto) (0.7-5.8) Baso % (Auto) (0.1-1.2) % Neut # (Auto) (1.56-6.13) K/mm3 Lymph # (Auto) (1.18-3.74) K/mm3 [place] # (Auto) (0.24-0.36) K/mm3 Eos # (Auto) (0.04-0.36) K/mm3 Baso # (Auto) (0.01-0.08) K/mm3 Sodium 138 (136-145) mEq/L Potassium 2.9 L (3.5-5.1) mEq/L Chloride 98 (98-107) mEq/L Carbon Dioxide 26 (21-32) mEq/L Anion Gap 16.9 H (5-15) BUN 11 (7-18) mg/dL Creatinine 0.8 (0.55-1.02) mg/dL Est Cr Clr Drug Dosing 79.65 mL/min Estimated GFR (MDRD) > 60 (>60) mL/min BUN/Creatinine Ratio 13.8 L (14-18) Glucose 102 H (70-99) mg/dL Calcium 8.9 (8.5-10.1) mg/dL Magnesium 1.8 (1.8-2.4) mg/dL Total Bilirubin 0.5 (0.2-1.0) mg/dL AST 36 (15-37) U/L ALT 32 (14-59) U/L Alkaline Phosphatase 93 (46-116) U/L Total Protein 7.9 (6.4-8.2) g/dl Albumin 4.2 (3.4-5.0) g/dl Globulin 3.7 gm/dL Albumin/Globulin Ratio 1.1 (1-2) Lipase 96 (73-393) U/L HCG, Qual Negative (NEGATIVE) Urine Color (Yellow) Urine Appearance (Clear) Urine pH (5.0-8.0) Ur Specific [place] (1.005-1.030) Urine Protein (Negative) Urine Glucose (UA) (Negative) Urine Ketones (Negative) Urine Occult Blood (Negative) Urine Nitrite (Negative) Urine Bilirubin (Negative) Urine Urobilinogen (0.2-1.0) Ur Leukocyte Esterase (Negative) Urine RBC (0-5) /hpf Urine WBC (0-5) /hpf Ur Squamous Epith Cells (0-5) /hpf Urine Bacteria (FEW) /hpf Urine Mucus (FEW) /hpf Influenza Type A RNA (NEGATIVE) Influenza Type B RNA (NEGATIVE) SARS-CoV-2 RNA ([place]) (NEGATIVE) Meds: Medications Generic Name Dose Route Start Last Admin Trade Name Freq PRN Reason Stop Dose Admin Sodium Chloride 10 ml 09/06/21 08:00 09/06/21 08:31 Sodium Chloride 0.9% 10 Ml Syringe FLUSH 10 ml ASDIRECTED PRN Administration Keep Vein Open Discontinued Medications Generic Name Dose Route Start Last Admin Trade Name Freq PRN Reason Stop Dose Admin Sodium Chloride 1,000 mls @ 1,000 mls/hr 09/06/21 08:00 09/06/21 08:31 Normal Saline IV 09/06/21 08:59 1,000 mls/hr .BOLUS STA Administration Lorazepam 1 mg 09/06/21 08:01 09/06/21 08:31 Lorazepam 2 Mg/Ml Sdv IVPUSH 09/06/21 08:02 1 mg ONETIME ONE Administration Ondansetron HCl 4 mg 09/06/21 08:00 09/06/21 08:31 Ondansetron 4 Mg/2 Ml Sdv IVPUSH 09/06/21 08:01 4 mg ONETIME ONE Administration - Re-Assessments/Exams Free Text/Narrative Re-Assessment/Exam: 09/06/21 09:44 I examined the patient myself and I agree with Richelle's assessment and plan. The patient feels much better. Her CBC looks good. Her K was a little low at 2.9. Her anion gap is elevated at 16.9. Her lipase is normal. Her HCG is negative. Her UA shows some leukocyte esterase and some bacteria. She has some epithelial cells. This could be contaminated. I will get a culture. I will give her some zofran for home. She has a gastroenteritis. Her COVID and influenza are negative. Departure - Departure Time of Disposition: 09:50 Condition: Good - Discharge Information *PRESCRIPTION DRUG MONITORING PROGRAM REVIEWED*: Not Applicable *COPY OF PRESCRIPTION DRUG MONITORING REPORT IN PATIENT OFELIA: Not Applicable Sepsis Event Note (ED) - Focused Exam Vital Signs: Vital Signs Temp Pulse Resp BP Pulse Ox 09/06/21 07:46 96.7 F L 22 L 22 H 157/96 H 100 - My Orders Last 24 Hours: My Active Orders 09/06/21 08:00 Peripheral IV Care [RC] . DIRECTED Sodium Chloride 0.9% [Saline Flush] 10 ml FLUSH ASDIRECTED PRN ED Antiemetic Medication Reflex [OM.PC] Stat Peripheral IV Insertion Adult [OM.PC] Stat 09/06/21 09:40 CULTURE URINE [MREF] Stat - Assessment/Plan Last 24 Hours: My Active Orders 09/06/21 08:00 Peripheral IV Care [RC] . DIRECTED Sodium Chloride 0.9% [Saline Flush] 10 ml FLUSH ASDIRECTED PRN ED Antiemetic Medication Reflex [OM.PC] Stat Peripheral IV Insertion Adult [OM.PC] Stat 09/06/21 09:40 CULTURE URINE [MREF] Stat
[2021-09-06 08:47] LABS: CORONAVIRUS COVID-19 NAA NEGATIVE (NEGATIVE)
== END 2021-09-06 10:00 | disposition home or self-care (01) ==
LOC: JD.ED 07:34
DX: K52.9 Noninfective gastroenteritis and colitis, unspecified (principal); I10 Essential (primary) hypertension
CPT/HCPCS: 0240U; 36415; 80053; 81001; 83690; 83735; 84703; 85025; 87086; 96374; 96375; 99284; J2060; J2405; J7030

== ENCOUNTER 2022-08-04 05:56 | Emergency (ER) | payer BC ==
[2022-08-04 06:14] VITALS: BP 125/103; PULSE 95
[2022-08-04] MEDS ORDERED: Sodium Chloride 0.9% 10 ML Syringe FLUSH PRN (06:27)
[2022-08-04] MEDS ORDERED: Ondansetron 4 MG/2 ML SDV IVPUSH ONE (06:37)
[2022-08-04] MEDS ORDERED: LORazepam 2 MG/ML SDV IVPUSH ONE ×2 (06:37→08:51)
[2022-08-04] MEDS ORDERED: HYDROmorphone 0.5 MG/0.5 ML Syringe IVPUSH ONE (06:38)
[2022-08-04] MEDS ORDERED: Sodium Chloride 0.9% 1,000 ML IV SCH (07:15)
[2022-08-04] MEDS ORDERED: Ketorolac 30 MG/ML SDV IVPUSH ONE (08:51)
[2022-08-04] MEDS ORDERED: Metoclopramide 10 MG/2 ML SDV IVPUSH ONE (09:04)
[2022-08-04 09:37] LABS: CORONAVIRUS COVID-19 NAA POSITIVE (NEGATIVE)
== END 2022-08-04 10:45 | disposition home or self-care (01) ==
LOC: JD.ED 05:56
DX: U07.1 COVID-19 (principal); N39.0 Urinary tract infection, site not specified; I10 Essential (primary) hypertension; F17.210 Nicotine dependence, cigarettes, uncomplicated
CPT/HCPCS: 0241U; 36415; 74176; 80053; 81001; 84703; 85025; 96361; 96374; 96375; 96376; 99284; J1170; J1885; J2060; J2405; J2765; J3490; J7030

== ENCOUNTER 2023-07-02 10:35 | Emergency (ER) | payer BC, OTHER ==
[2023-07-02] MEDS ORDERED: Ondansetron 4 MG/2 ML SDV IVPUSH ONE ×2 (11:32→14:05)
[2023-07-02] MEDS ORDERED: LORazepam 2 MG/ML SDV IVPUSH ONE (11:32)
[2023-07-02] MEDS ORDERED: Sodium Chloride 0.9% 1,000 ML IV STA ×2 (11:32→12:07)
[2023-07-02] MEDS ORDERED: Sodium Chloride 0.9% 10 ML Syringe FLUSH PRN (11:33)
[2023-07-02 11:40] LABS: BASOPHILS PERCENT AUTO 0.2 % (0.0-1.0); HEMATOCRIT 35.3 % (37.0-47.0); HEMOGLOBIN 11.9 gm/dl (12.0-16.0); IMMATURE GRAN ABSOLUTE AUTO 0.05 K/mm3 (0.00-0.05); IMMATURE GRAN PERCENT AUTO 0.4 % (0.0-0.4); LYMPHOCYTES ABSOLUTE AUTO 0.7 K/mm3 (1.0-4.8); LYMPHOCYTES PERCENT AUTO 5.8 % (24.0-44.0); MEAN CORPUSCULAR HEMOGLOBIN 26.2 pg (28.0-32.0); MEAN CORPUSCULAR HGB CONC 33.7 g/dl (32.0-36.0); MEAN CORPUSCULAR VOLUME 77.8 fl (83.0-99.0); MEAN PLATELET VOLUME 9.2 fl (9.4-12.3); MONOCYTES ABSOLUTE AUTO 0.6 K/mm3 (0.0-0.8); MONOCYTES PERCENT AUTO 4.6 % (0.0-8.0); NEUTROPHILS ABSOLUTE AUTO 11.2 K/mm3 (1.8-7.7); PLATELET COUNT,PLT 189 K/mm3 (150-400); RED BLOOD CELL COUNT 4.54 M/mm3 (4.10-5.30)
[2023-07-02 11:49] LABS: A/G RATIO 1.1 (1-2); ALANINE AMINOTRANSFERASE,ALT 23 U/L (14-59); ALBUMIN 4.1 g/dl (3.4-5.0); ALKALINE PHOSPHATASE 96 U/L (46-116); ANION GAP 21.3 (5-15); ASPARTATE AMNIOTRANSFERASE,AST 30 U/L (15-37); BILIRUBIN TOTAL 0.9 mg/dL (0.2-1.0); BLOOD UREA NITROGEN,BUN 12 mg/dL (7-18); BUN/CREATININE RATIO 17.1 (14-18); C-REACTIVE PROTEIN <0.2 mg/dL (<1.0); CALCIUM 8.8 mg/dL (8.5-10.1); CARBON DIOXIDE,CO2 23 mEq/L (21-32); CHLORIDE,CL 96 mEq/L (98-107); CREATININE 0.7 mg/dL (0.55-1.02); ESTIMATED GFR 113 mL/min (>60); GLUCOSE RANDOM 127 mg/dL (70-99); POTASSIUM,K 3.3 mEq/L (3.5-5.1); PROTEIN TOTAL,TP 7.8 g/dl (6.4-8.2); SODIUM,NA 137 mEq/L (136-145)
[2023-07-02] MEDS ORDERED: Iopamidol 612 MG/ML 100 ML Bottle IVPUSH ONE (12:52)
[2023-07-02 13:19] LABS: APPEARANCE,URINE CLEAR (Clear); BILIRUBIN,URINE NEGATIVE (Negative); COLOR,URINE YELLOW (Yellow); GLUCOSE,URINE NEGATIVE (Negative); KETONES,URINE 4+ (Negative); LEUKOCYTE ESTERASE,URINE NEGATIVE (Negative); NITRITE,URINE NEGATIVE (Negative); OCCULT BLOOD,URINE TRACE-INTACT (Negative); PROTEIN,URINE 1+ (Negative); UROBILINOGEN,URINE 0.2 (0.2-1.0)
[2023-07-02 13:41] LABS: RBC,URINE 0-5 /hpf (0-5); SQUAMOUS EPITHELIAL CELLS,UR 0-5 /hpf (0-5); WBC,URINE NOT SEEN /hpf (0-5)
[2023-07-02 13:42] LABS: BACTERIA,URINE RARE /hpf (FEW); MUCUS,URINE MODERATE /hpf (FEW)
[2023-07-02] MEDS ORDERED: Dicyclomine 20 MG/2 ML SDV IM ONE (14:40)
[2023-07-02 15:58] VITALS: BP 147/94; PULSE 86
== END 2023-07-02 15:55 | disposition home or self-care (01) ==
LOC: JD.ED 10:35
DX: K52.9 Noninfective gastroenteritis and colitis, unspecified (principal); I10 Essential (primary) hypertension; Z87.891 Personal history of nicotine dependence; Z79.899 Other long term (current) drug therapy
CPT/HCPCS: 36415; 74177; 80053; 81001; 83690; 85025; 86140; 96361; 96372; 96374; 96375; 96376; 99284; J0500; J2060; J2405; J7030; Q9967

== ENCOUNTER 2024-07-14 15:26 | Emergency (ER) | payer OTHER ==
[2024-07-14 15:36] VITALS: BP 147/99; PULSE 86
[2024-07-14] MEDS ORDERED: Sodium Chloride 0.9% 10 ML Syringe FLUSH PRN (15:56)
[2024-07-14] MEDS ORDERED: Iopamidol 612 MG/ML 100 ML Bottle IVPUSH ONE (16:00)
[2024-07-14] MEDS: Metoclopramide 10 MG/2 ML SDV IVPUSH ONE (16:16)
[2024-07-14] MEDS: Sodium Chloride 0.9% 1,000 ML IV ONE (16:19)
[2024-07-14 16:20] LABS: BASOPHILS PERCENT AUTO 0.7 % (0.0-1.0); EOSINOPHILS PERCENT AUTO 0.5 % (0.0-6.0); HEMATOCRIT 40.1 % (37.0-47.0); LYMPHOCYTES ABSOLUTE AUTO 1.6 K/mm3 (1.0-4.8); LYMPHOCYTES PERCENT AUTO 36.5 % (24.0-44.0); MEAN CORPUSCULAR HEMOGLOBIN 29.9 pg (28.0-32.0); MEAN CORPUSCULAR HGB CONC 34.2 g/dl (32.0-36.0); MEAN PLATELET VOLUME 9.2 fl (9.4-12.3); MONOCYTES ABSOLUTE AUTO 0.4 K/mm3 (0.0-0.8); MONOCYTES PERCENT AUTO 8.3 % (0.0-8.0); NEUTROPHILS ABSOLUTE AUTO 2.4 K/mm3 (1.8-7.7); PLATELET COUNT,PLT 237 K/mm3 (150-400); RED BLOOD CELL COUNT 4.58 M/mm3 (4.10-5.30); WHITE BLOOD CELL COUNT,WBC 4.36 K/mm3 (3.9-11.3)
[2024-07-14 16:23] LABS: APPEARANCE,URINE CLEAR (Clear); BILIRUBIN,URINE NEGATIVE (Negative); COLOR,URINE YELLOW (Yellow); GLUCOSE,URINE NEGATIVE (Negative); KETONES,URINE NEGATIVE (Negative); LEUKOCYTE ESTERASE,URINE NEGATIVE (Negative); NITRITE,URINE NEGATIVE (Negative); OCCULT BLOOD,URINE 1+ (Negative); PROTEIN,URINE NEGATIVE (Negative); UROBILINOGEN,URINE 0.2 (0.2-1.0)
[2024-07-14] MEDS: Sodium Chloride 0.9% 10 ML Syringe FLUSH ONE (16:28)
[2024-07-14 16:29] LABS: HEMOGLOBIN 13.7 gm/dl (12.0-16.0); MEAN CORPUSCULAR VOLUME 87.6 fl (83.0-99.0)
[2024-07-14] MEDS ORDERED: Naloxone 0.4 MG/ML SDV IVPUSH PRN (16:31)
[2024-07-14 16:44] LABS: BACTERIA,URINE FEW /hpf (FEW); EPITHELIAL CELLS,URINE 0-5 /hpf (0-5); MUCUS,URINE FEW /hpf (FEW); WBC,URINE 0-5 /hpf (0-5)
[2024-07-14 16:57] LABS: A/G RATIO 1.1 (1-2); ALBUMIN 3.8 g/dl (3.4-5.0); ANION GAP 13.5 (5-15); BILIRUBIN TOTAL 0.3 mg/dL (0.2-1.0); BUN/CREATININE RATIO 11.7 (14-18); C-REACTIVE PROTEIN 0.05 mg/dL (<0.30); CREATININE 0.6 mg/dL (0.55-1.02); EST CRCL DRUG DOSING (CG) 93.71 mL/min; ETHANOL BLOOD MEDICAL 0.39 gm% (0.00); MAGNESIUM 2.2 mg/dL (1.8-2.4); POTASSIUM,K 3.5 mEq/L (3.5-5.1); PROTEIN TOTAL,TP 7.2 g/dl (6.4-8.2)
[2024-07-14] MEDS: LORazepam 2 MG/ML SDV IVPUSH ONE (17:20)
[2024-07-14] MEDS: HYDROmorphone 0.5 MG/0.5 ML Syringe IVPUSH ONE (17:20)
== END 2024-07-14 18:10 | disposition left against medical advice (07) ==
LOC: JD.ED 15:26
DX: F10.120 Alcohol abuse with intoxication, uncomplicated (principal); J44.9 Chronic obstructive pulmonary disease, unspecified; I10 Essential (primary) hypertension; Z86.16 Personal history of COVID-19; Z87.891 Personal history of nicotine dependence; Z79.899 Other long term (current) drug therapy
CPT/HCPCS: 36415; 80053; 80307; 81001; 83605; 83690; 83735; 85025; 86140; 96374; 99284; J2765; J3490; J7030

== ENCOUNTER 2024-07-15 09:45 | Emergency (ER) | payer OTHER ==
[2024-07-15 10:56] VITALS: BP 152/86
[2024-07-15 11:13] VITALS: PULSE 83
[2024-07-15] MEDS: Sodium Chloride 0.9% 1,000 ML IV ONE ×2 (11:25→15:08)
[2024-07-15 11:27] LABS: BASOPHILS PERCENT AUTO 0.6 % (0.0-1.0); HEMATOCRIT 38.3 % (37.0-47.0); HEMOGLOBIN 13.2 gm/dl (12.0-16.0); IMMATURE GRAN ABSOLUTE AUTO 0.02 K/mm3 (0.00-0.05); IMMATURE GRAN PERCENT AUTO 0.4 % (0.0-0.4); LYMPHOCYTES ABSOLUTE AUTO 0.7 K/mm3 (1.0-4.8); LYMPHOCYTES PERCENT AUTO 13.7 % (24.0-44.0); MEAN CORPUSCULAR HEMOGLOBIN 29.9 pg (28.0-32.0); MEAN CORPUSCULAR HGB CONC 34.5 g/dl (32.0-36.0); MEAN CORPUSCULAR VOLUME 86.8 fl (83.0-99.0); MEAN PLATELET VOLUME 9.7 fl (9.4-12.3); MONOCYTES ABSOLUTE AUTO 0.3 K/mm3 (0.0-0.8); MONOCYTES PERCENT AUTO 6.2 % (0.0-8.0); NEUTROPHILS ABSOLUTE AUTO 4.1 K/mm3 (1.8-7.7); NEUTROPHILS PERCENT AUTO 79.1 % (41.0-71.0); PLATELET COUNT,PLT 221 K/mm3 (150-400); RED BLOOD CELL COUNT 4.41 M/mm3 (4.10-5.30)
[2024-07-15 11:51] LABS: A/G RATIO 1.1 (1-2); ALBUMIN 3.8 g/dl (3.4-5.0); ANION GAP 17.1 (5-15); BILIRUBIN TOTAL 0.6 mg/dL (0.2-1.0); BUN/CREATININE RATIO 12.5 (14-18); CALCIUM 8.1 mg/dL (8.5-10.1); CREATININE 0.8 mg/dL (0.55-1.02); EST CRCL DRUG DOSING (CG) 69.8 mL/min; ETHANOL BLOOD MEDICAL 0.03 gm% (0.00); POTASSIUM,K 3.1 mEq/L (3.5-5.1); PROTEIN TOTAL,TP 7.3 g/dl (6.4-8.2); TSH 0.479 uIU/mL (0.358-3.74)
[2024-07-15] MEDS: Ondansetron 4 MG/2 ML SDV IVPUSH ONE (12:06)
[2024-07-15] MEDS: LORazepam 2 MG/ML SDV IVPUSH ONE ×2 (12:09→19:06)
[2024-07-15 12:23] LABS: BARBITURATE SCREEN,URINE NEGATIVE (CUTOFF=200); BENZODIAZEPINES SCREEN,URINE NEGATIVE (CUTOFF=150); BUPRENORPHINE SCREEN,URINE NEGATIVE (CUTOFF=10); METHADONE SCREEN, URINE NEGATIVE (CUTOFF=200); METHAMPHETAMINES SCREEN, URINE NEGATIVE (CUTOFF=500); OXYCODONE SCREEN,URINE NEGATIVE (CUT0FF=100); THC SCREEN,URINE 20 NG/ML NEGATIVE (CUTOFF=50)
[2024-07-15 12:25] LABS: AMPHETAMINES SCREEN, URINE NEGATIVE (CUTOFF=500)
[2024-07-15] MEDS: Potassium Chloride 20 MEQ Tab.ER PO ONE (14:00)
[2024-07-15] MEDS: Metoclopramide 10 MG/2 ML SDV IVPUSH ONE (19:13)
[2024-07-15] MEDS: LORazepam 1 MG Tab PO ONE (21:35)
== END 2024-07-15 21:41 | disposition home or self-care (01) ==
LOC: JD.ED 09:45
DX: F10.230 Alcohol dependence with withdrawal, uncomplicated (principal); I10 Essential (primary) hypertension; J44.9 Chronic obstructive pulmonary disease, unspecified; Z86.16 Personal history of COVID-19
CPT/HCPCS: 36415; 80053; 80143; 80179; 80306; 80307; 81025; 84443; 85025; 93005; 96361; 96374; 96375; 96376; 99284; A9270; J2060; J2405; J7030

== ENCOUNTER 2024-12-14 20:57 | Emergency (ER) | payer OTHER ==
[2024-12-14 21:23] VITALS: BP 130/84; PULSE 108
== END 2024-12-14 22:00 | disposition home or self-care (01) ==
LOC: EEVIPCON 20:57 → JD.ED 20:57
DX: T74.21XA Adult sexual abuse, confirmed, initial encounter (principal); S80.12XA Contusion of left lower leg, initial encounter; I10 Essential (primary) hypertension; J44.9 Chronic obstructive pulmonary disease, unspecified; Z86.16 Personal history of COVID-19; Z79.899 Other long term (current) drug therapy; Y07.9 Unspecified perpetrator of maltreatment and neglect
CPT/HCPCS: 99283; 99284

== ENCOUNTER 2025-01-14 11:40 | Emergency (ER) | payer OTHER ==
[2025-01-14] MEDS: Folic Acid 50 MG/10 ML MDV IV STA (12:08)
[2025-01-14] MEDS: Thiamine 200 MG/2 ML MDV IVPUSH ONE (12:08)
[2025-01-14] MEDS: Ondansetron 4 MG/2 ML SDV IVPUSH ONE ×2 (12:08)
[2025-01-14 12:09] LABS: BASOPHILS PERCENT AUTO 0.3 % (0.0-1.0); EOSINOPHILS PERCENT AUTO 0.4 % (0.0-6.0); HEMATOCRIT 43.1 % (37.0-47.0); HEMOGLOBIN 14.2 gm/dl (12.0-16.0); IMMATURE GRAN ABSOLUTE AUTO 0.01 K/mm3 (0.00-0.05); IMMATURE GRAN PERCENT AUTO 0.1 % (0.0-0.4); LYMPHOCYTES ABSOLUTE AUTO 2.3 K/mm3 (1.0-4.8); LYMPHOCYTES PERCENT AUTO 24.2 % (24.0-44.0); MEAN CORPUSCULAR HEMOGLOBIN 27.3 pg (28.0-32.0); MEAN CORPUSCULAR HGB CONC 32.9 g/dl (32.0-36.0); MEAN PLATELET VOLUME 9.3 fl (9.4-12.3); MONOCYTES ABSOLUTE AUTO 0.4 K/mm3 (0.0-0.8); MONOCYTES PERCENT AUTO 3.9 % (0.0-8.0); NEUTROPHILS ABSOLUTE AUTO 6.7 K/mm3 (1.8-7.7); NEUTROPHILS PERCENT AUTO 71.1 % (41.0-71.0); PLATELET COUNT,PLT 275 K/mm3 (150-400); WHITE BLOOD CELL COUNT,WBC 9.35 K/mm3 (3.9-11.3)
[2025-01-14] MEDS: Magnesium Sulfate 2 GM/50 mL 2 GM/50 ML BAG IV ONE (12:09)
[2025-01-14] MEDS: Sodium Chloride 0.9% 2,000 ML IV ONE (12:10)
[2025-01-14] MEDS: LORazepam 2 MG/ML SDV IVPUSH ONE (12:10)
[2025-01-14 12:16] LABS: MEAN CORPUSCULAR VOLUME 82.9 fl (83.0-99.0)
[2025-01-14 12:28] VITALS: BP 137/98; PULSE 98
[2025-01-14 12:33] LABS: INR 0.97; PROTHROMBIN TIME 10.3 SECONDS (9.7-12.0)
[2025-01-14 12:43] LABS: A/G RATIO 1.1 (1-2); ALBUMIN 3.8 g/dl (3.4-5.0); ANION GAP 14.5 (5-15); BILIRUBIN TOTAL 0.4 mg/dL (0.2-1.0); BUN/CREATININE RATIO 12.9 (14-18); CREATININE 0.7 mg/dL (0.55-1.02); EST CRCL DRUG DOSING (CG) 106.03 mL/min; ETHANOL BLOOD MEDICAL 0.41 gm% (0.00); POTASSIUM,K 3.5 mEq/L (3.5-5.1); PROTEIN TOTAL,TP 7.4 g/dl (6.4-8.2)
== END 2025-01-14 15:35 | disposition home or self-care (01) ==
LOC: JD.ED 11:40
DX: F10.229 Alcohol dependence with intoxication, unspecified (principal); F41.9 Anxiety disorder, unspecified; R45.86 Emotional lability; I10 Essential (primary) hypertension; J44.9 Chronic obstructive pulmonary disease, unspecified; Z86.16 Personal history of COVID-19; Z79.899 Other long term (current) drug therapy; Y90.0 Blood alcohol level of less than 20 mg/100 ml
CPT/HCPCS: 36415; 80053; 80143; 80307; 82550; 83690; 83735; 85025; 85610; 96361; 96365; 96375; 99284; J2060; J2405; J3411; J3475; J7030; J3490

== ENCOUNTER 2025-01-18 20:01 | Inpatient (IN) | payer OTHER ==
[2025-01-18] MEDS ORDERED: Sodium Chloride 0.9% 10 ML Syringe FLUSH PRN (20:31)
[2025-01-18] MEDS: Metoclopramide 10 MG/2 ML SDV IVPUSH ONE (20:39)
[2025-01-18] MEDS: LORazepam 2 MG/ML SDV IVPUSH ONE (20:39)
[2025-01-18] MEDS: Sodium Chloride 0.9% 1,000 ML IV ONE ×2 (20:39→22:32)
[2025-01-18 20:49] LABS: BASOPHILS PERCENT AUTO 0.2 % (0.0-1.0); EOSINOPHILS PERCENT AUTO 0.1 % (0.0-6.0); HEMATOCRIT 37.2 % (37.0-47.0); HEMOGLOBIN 12.9 gm/dl (12.0-16.0); IMMATURE GRAN ABSOLUTE AUTO 0.02 K/mm3 (0.00-0.05); IMMATURE GRAN PERCENT AUTO 0.2 % (0.0-0.4); LYMPHOCYTES ABSOLUTE AUTO 0.5 K/mm3 (1.0-4.8); LYMPHOCYTES PERCENT AUTO 5.9 % (24.0-44.0); MEAN CORPUSCULAR HGB CONC 34.7 g/dl (32.0-36.0); MEAN CORPUSCULAR VOLUME 80.9 fl (83.0-99.0); MEAN PLATELET VOLUME 9.6 fl (9.4-12.3); MONOCYTES ABSOLUTE AUTO 0.3 K/mm3 (0.0-0.8); MONOCYTES PERCENT AUTO 3.3 % (0.0-8.0); NEUTROPHILS PERCENT AUTO 90.3 % (41.0-71.0); WHITE BLOOD CELL COUNT,WBC 8.85 K/mm3 (3.9-11.3)
[2025-01-18 20:57] LABS: PLATELET COUNT,PLT 136 K/mm3 (150-400)
[2025-01-18 21:20] LABS: A/G RATIO 1.1 (1-2); ALBUMIN 3.8 g/dl (3.4-5.0); ANION GAP 22.4 (5-15); BILIRUBIN TOTAL 0.6 mg/dL (0.2-1.0); BUN/CREATININE RATIO 15.7 (14-18); CALCIUM 8.7 mg/dL (8.5-10.1); CREATININE 0.7 mg/dL (0.55-1.02); EST CRCL DRUG DOSING (CG) 83.31 mL/min; ETHANOL BLOOD MEDICAL 0.06 gm% (0.00); MAGNESIUM 1.6 mg/dL (1.8-2.4); POTASSIUM,K 3.4 mEq/L (3.5-5.1); PROTEIN TOTAL,TP 7.3 g/dl (6.4-8.2)
[2025-01-18 22:10] LABS: SLIDE REVIEW ABNORMAL SMEAR
[2025-01-18] MEDS: Magnesium Sulf/Wat 4 GM/50 mL 4 GM in Premix Bag 1 BAG IV ONE (22:33)
[2025-01-18] MEDS: Potassium Chloride 20 MEQ Tab.ER PO ONE (22:37)
[2025-01-18 22:46] LABS: APPEARANCE,URINE CLOUDY (Clear); BILIRUBIN,URINE NEGATIVE (Negative); COLOR,URINE YELLOW (Yellow); GLUCOSE,URINE NEGATIVE (Negative); KETONES,URINE 4+ (Negative); LEUKOCYTE ESTERASE,URINE NEGATIVE (Negative); NITRITE,URINE NEGATIVE (Negative); OCCULT BLOOD,URINE TRACE-INTACT (Negative); PROTEIN,URINE 2+ (Negative)
[2025-01-18 22:58] LABS: BARBITURATE SCREEN,URINE NEGATIVE (CUTOFF=200); BENZODIAZEPINES SCREEN,URINE PRESUMPTIVE POSITIVE (CUTOFF=150); BUPRENORPHINE SCREEN,URINE NEGATIVE (CUTOFF=10); METHADONE SCREEN, URINE NEGATIVE (CUTOFF=200); METHAMPHETAMINES SCREEN, URINE NEGATIVE (CUTOFF=500); OXYCODONE SCREEN,URINE NEGATIVE (CUT0FF=100); THC SCREEN,URINE 20 NG/ML NEGATIVE (CUTOFF=50)
[2025-01-18 22:59] LABS: AMORPHOUS SEDIMENT,URINE MANY /hpf (NOT SEEN); BACTERIA,URINE FEW /hpf (FEW); MUCUS,URINE MODERATE /hpf (FEW); RBC,URINE 0-5 /hpf (0-5); SQUAMOUS EPITHELIAL CELLS,UR 0-5 /hpf (0-5); WBC,URINE 0-5 /hpf (0-5)
[2025-01-18 23:01] LABS: AMPHETAMINES SCREEN, URINE NEGATIVE (CUTOFF=500)
[2025-01-19] MEDS: diphenhydrAMINE 50 MG/ML SDV IVPUSH ONE (01:44)
[2025-01-19] MEDS: LORazepam 2 MG/ML SDV IVPUSH ONE ×2 (04:01→06:47)
[2025-01-19] MEDS ORDERED: LORazepam 2 MG/ML SDV IVPUSH PRN (11:00)
[2025-01-19] MEDS ORDERED: hydrALAZINE 20 MG/ML SDV IVPUSH PRN (11:27)
[2025-01-19] MEDS ORDERED: Labetalol 100 MG/20 ML MDV IVPUSH PRN (11:27)
[2025-01-19] MEDS ORDERED: Melatonin 3 MG Tab PO PRN (11:29)
[2025-01-19] MEDS ORDERED: Acetaminophen 325 MG Tab PO PRN (11:29)
[2025-01-19] MEDS ORDERED: Ondansetron 4 MG Tab.DIS PO PRN (11:29)
[2025-01-19] MEDS ORDERED: Sennosides/Docusate Sodium 50-8.6 MG Tab PO PRN (11:29)
[2025-01-19] MEDS ORDERED: Acetaminophen/HYDROcodone 325-5 MG Tab PO PRN (11:29)
[2025-01-19] MEDS: Potassium Phosphates 30 MMOLE in Sodium Chloride 0.9% 500 ML IV SCH (12:27)
[2025-01-19] MEDS: Citalopram 10 MG Tab PO SCH (12:27)
[2025-01-19] MEDS: Iopamidol 612 MG/ML 100 ML Bottle IVPUSH ONE (12:28)
[2025-01-19] MEDS: Sodium Chloride 0.9% 10 ML Syringe FLUSH ONE (12:28)
[2025-01-19] MEDS: Sertraline 50 MG Tab PO SCH (13:27)
[2025-01-19] MEDS: LORazepam 1 MG Tab PO PRN (16:21)
[2025-01-19] MEDS: Thiamine 100 MG Tab PO SCH (21:23)
[2025-01-19] MEDS: Folic Acid 1 MG Tab PO SCH (21:23)
[2025-01-20 05:31] LABS: BASOPHILS PERCENT AUTO 0.2 % (0.0-1.0); HEMATOCRIT 34.9 % (37.0-47.0); HEMOGLOBIN 11.5 gm/dl (12.0-16.0); IMMATURE GRAN ABSOLUTE AUTO 0.01 K/mm3 (0.00-0.05); IMMATURE GRAN PERCENT AUTO 0.2 % (0.0-0.4); LYMPHOCYTES PERCENT AUTO 24.6 % (24.0-44.0); MEAN PLATELET VOLUME 11.4 fl (9.4-12.3); MONOCYTES ABSOLUTE AUTO 0.3 K/mm3 (0.0-0.8); MONOCYTES PERCENT AUTO 8.4 % (0.0-8.0); NEUTROPHILS ABSOLUTE AUTO 2.6 K/mm3 (1.8-7.7); NEUTROPHILS PERCENT AUTO 65.6 % (41.0-71.0); PLATELET COUNT,PLT 101 K/mm3 (150-400); RED BLOOD CELL COUNT 4.11 M/mm3 (4.10-5.30); WHITE BLOOD CELL COUNT,WBC 4.03 K/mm3 (3.9-11.3)
[2025-01-20 05:35] LABS: MEAN CORPUSCULAR VOLUME 84.9 fl (83.0-99.0)
[2025-01-20 05:51] LABS: ALBUMIN 3.1 g/dl (3.4-5.0); ANION GAP 11.6 (5-15); BILIRUBIN TOTAL 0.6 mg/dL (0.2-1.0); CALCIUM 8.8 mg/dL (8.5-10.1); CREATININE 0.6 mg/dL (0.55-1.02); EST CRCL DRUG DOSING (CG) 97.01 mL/min; MAGNESIUM 2.1 mg/dL (1.8-2.4); PHOSPHORUS 3.2 mg/dL (2.6-4.7); POTASSIUM,K 3.6 mEq/L (3.5-5.1); PROTEIN TOTAL,TP 6.3 g/dl (6.4-8.2)
[2025-01-20 06:49] LABS: FOLIC ACID 11.3 ng/mL (8.6-58.9)
[2025-01-20] MEDS: Cyanocobalamin (Vitamin B12) 1,000 MCG Tab PO SCH (08:02)
[2025-01-20] MEDS: Potassium Chloride 20 MEQ Tab.ER PO ONE (09:37)
[2025-01-20] MEDS: Naltrexone 50 MG Tab PO ONE (10:00)
[2025-01-20 10:10] VITALS: BP 137/94
[2025-01-20 11:11] VITALS: PULSE 81
[2025-01-20] MEDS ORDERED: Enoxaparin 40 MG/0.4 ML Syringe SUBCUT SCH (12:00)
== END 2025-01-20 11:06 | disposition home or self-care (01) | DRG 897 ==
LOC: JD.ED 20:01 → JD.ICU 01-19 06:44
PROVIDERS: ADMIT Student in an Organized Health Care Education/Training Program; ATTEND Student in an Organized Health Care Education/Training Program
PROC: HZ2ZZZZ Detoxification Services for Substance Abuse Treatment (ICD-10-PCS; principal; 2025-01-19)
DX: F10.239 Alcohol dependence with withdrawal, unspecified (principal); R56.9 Unspecified convulsions; I10 Essential (primary) hypertension; J44.9 Chronic obstructive pulmonary disease, unspecified; F41.9 Anxiety disorder, unspecified; F32.A Depression, unspecified; E83.42 Hypomagnesemia; E78.00 Pure hypercholesterolemia, unspecified; D69.6 Thrombocytopenia, unspecified; E87.6 Hypokalemia; K76.0 Fatty (change of) liver, not elsewhere classified; K44.9 Diaphragmatic hernia without obstruction or gangrene; Z79.899 Other long term (current) drug therapy; Z98.51 Tubal ligation status; Z86.16 Personal history of COVID-19; Z98.891 History of uterine scar from previous surgery
CPT/HCPCS: 36415; 70450; 70450-26; 74177; 74177-26; 80053; 80143; 80306; 80307; 81001; 82607; 82746; 83690; 83735; 84100; 84425; 84703; 85025; 93005; A9270-GY; J1200; J2060; J2765; J3475; J3490; J7030; J7040